=== PATIENT | female | born 1945 | race American Indian/Alaskan Native ===

== ENCOUNTER 2020-03-04 18:23 | Inpatient (IN) | payer MEDICARE ==
[2020-03-05] MEDS ORDERED: ONDANSETRON 4 MG/2 ML INJ IV ONE (02:37)
[2020-03-05] MEDS ORDERED: SODIUM CHLORIDE 0.9% 500 ML 500 ML IV ONE (02:37)
--- NOTE | 2020-03-05 02:40 | Emergency Department Report ---
ED General Adult HPI - General Chief complaint: Weakness Stated complaint: F/DIARRHEA/WEAKNESS PUI?: No Time Seen by Provider: 03/05/20 02:25 Source: patient, RN notes reviewed Mode of arrival: Wheelchair Limitations: No Limitations, Physical Limitation - History of Present Illness Initial comments: The patient was evaluated in the emergency department for symptoms described in the history of present illness. He/she was evaluated in the context of the global COVID-19 pandemic, which necessitated consideration that the patient might be at risk for infection with the virus that causes COVID-19. Institutional protocols and algorithms that pertain to the evaluation of patients at risk for COVID-19 are in a state of rapid change based on information released by regulatory bodies including the CDC and federal and state organizations. These policies and algorithms were followed during the patient's care in the emergency department. Please note that these policies, procedures and recommendations changed on a rapid basis. The patient is a 74-year-old female. She is not known to myself previously. She has a history of obesity, and walks with a walker. She has a primary care doctor, but she cannot recall their name. She is not quite sure what medical conditions she has. The patient presents to the ER today with a complaint of generalized weakness, nausea, coughing up and spitting up, last vomited over 24 hours ago, "diarrhea", which she describes as brown and green, nonbloody, generalized malaise and fatig ue. No headache or neck pain. No chest pain. No abdominal pain. No focal extremity weakness and or numbness. Patient has difficulty describing the qualitative nature of her symptoms, except as noted, and she has difficulty describing exacerbating or relieving factors. The patient did endorse that at one point her stool looked "black." She states that she does not take blood thinning medications or iron supplementation that she is aware of She does appear to have a history of hypertension, stroke, and arthritis. -: Gradual, days(s) Quality: other Consistency: other Improves with: other Worsens with: other Associated Symptoms: other - Related Data Allergies Allergy/AdvReac Type Severity Reaction Status Date / Time No Known Allergies Allergy Verified 03/05/20 05:27 ED Review of Systems ROS: Stated complaint: F/DIARRHEA/WEAKNESS Other details as noted in HPI Constitutional: fever, malaise, weakness Eyes: denies: eye pain, eye discharge ENT: denies: throat pain Respiratory: denies: cough Cardiovascular: denies: chest pain Gastrointestinal: nausea, vomiting, diarrhea. denies: abdominal pain Genitourinary: as per HPI Musculoskeletal: myalgia Neurological: weakness ED Past Medical Hx - Past Medical History Hx Hypertension: Yes Hx CVA: Yes Hx Arthritis: Yes (hip) - Surgical History Additional Surgical History: hysterectomy - Social History Smoking Status: Never Smoker Substance Use Type: None ED Physical Exam - General Limitations: Physical Limitation General appearance: alert, in no apparent distress - Head Head exam: Present: atraumatic, normocephalic - Eye Eye exam: Present: normal appearance, PERRL, EOMI, other (Visual acuity is intact to finger counting and color perception at a close distance). Absent: nystagmus - ENT ENT exam: Present: normal exam, normal orophraynx, mucous membranes moist, normal external ear exam - Neck Neck exam: Present: normal inspection, full ROM. Absent: tenderness, meningismus - Respiratory Respiratory exam: Present: normal lung sounds bilaterally. Absent: respiratory distress, wheezes, rales, rhonchi, stridor, decreased breath sounds - Cardiovascular Cardiovascular Exam: Present: regular rate, normal rhythm, normal heart sounds. Absent: bradycardia, tachycardia, irregular rhythm, systolic murmur, diastolic murmur, rubs, gallop - GI/Abdominal GI/Abdominal exam: Present: soft. Absent: distended, tenderness, guarding, rebound, rigid, pulsatile mass - Rectal Rectal exam: Present: normal inspection, normal rectal tone, heme (-) stool, other (Chaperoned by nurse Zenobia Mccoy). Absent: heme (+) stool, black stool, bloody stool, fecal impaction, hemorrhoids, tenderness - Extremities Exam Extremities exam: Present: normal inspection, full ROM, pedal edema (1+ edema bilateral lower extremities), other (2+ pulses noted in the bilateral upper and lower extremities. There is no palpable cord. negative Homans sign. Muscular compartments are soft. The pelvis is stable.). Absent: calf tenderness - Back Exam Back exam: Present: normal inspection, full ROM. Absent: tenderness, CVA tenderness (R), CVA tenderness (L), paraspinal tenderness, vertebral tenderness - Neurological Exam Neurological exam: Present: alert (Patient typically walks with a walker, and is able to stand and walk with a 1 person assist), other (No facial droop. Tongue midline. Extraocular movements intact bilaterally. Facial sensation intact to light touch in V1, V2, V3 distribution bilaterally. 5 and a 5 strength in 4 extremities. Sensation intact to light touch in 4 extremities.) - Psychiatric Psychiatric exam: Present: normal affect, normal mood - Skin Skin exam: Present: warm, dry, intact, normal color. Absent: rash ED Course Vital Signs 03/04/20 03/05/20 03/05/20 18:34 03:30 03:44 Temperature 100.3 F H 99.6 F Pulse Rate 92 H 87 81 Respiratory 20 16 14 Rate Blood Pressure 151/80 158/78 Blood Pressure 165/82 [Left] O2 Sat by Pulse 94 95 96 Oximetry - Reevaluation(s) Reevaluation #1: 03/05/20 03:38 Differential diagnosis, including but not limited to: Enteritis, pneumonia, urinary tract infection, colitis, diverticulitis, viral syndrome Assessment and plan: 74-year-old female with low-grade temperature, mild hypox ia, with nonspecific constitutional symptoms. Check EKG, basic laboratory studies, urinalysis, x-ray of the chest, CT scan of the abdomen pelvis, as she endorses nausea, diarrhea, and black stool. Rectal exam shows no gross blood. Reassess after initial data points Reevaluation #2: 03/05/20 05:28 CT scan of the abdomen pelvis suggests right middle lobe and right lower lobe pneumonia. PSI score 75 points Risk Class III, 0.9-2.8% mortality. Outpatient or inpatient treatment, depending on clinical judgment. Given advanced age, borderline hypoxia, plan is to admit the patient to the medical service for supportive care. Care will be transferred to the oncoming ER physician, to contact the morning hospitalist team to arrange admission, as the nocturnal hospitalist is currently capped for admissions ED Medical Decision Making - Lab Data Result diagrams: 03/05/20 02:55 03/05/20 02:55 Vital Signs 03/04/20 18:34 Temperature 100.3 F H Pulse Rate 92 H Respiratory 20 Rate Blood Pressure 151/80 O2 Sat by Pulse 94 Oximetry Lab Results 03/05/20 Range/Units 03:10 ABG pH 7.480 H (7.350-7.450) pH Units ABG pCO2 34.5 mm Hg ABG pO2 71.3 L (80.0-90.0) mm Hg ABG HCO3 25.1 (20.0-26.0) mmol/L ABG O2 Saturation 95.7 (95.0-99.0) % ABG O2 Content 17.3 (0.0-44) ABG Base Excess 2.0 (-2.0-3.0) mmol/L ABG Hemoglobin 13.1 (12.0-16.0) gm/dl ABG Carboxyhemoglobin 1.3 (0.0-5.0) % ABG Methemoglobin 0.5 (0.0-1.5) % Oxyhemoglobin 93.9 L (95.0-99.0) % FiO2 21 % Vital Signs 03/04/20 03/05/20 03/05/20 18:34 03:30 03:44 Temperature 100.3 F H 99.6 F Pulse Rate 92 H 87 81 Respiratory 20 16 14 Rate Blood Pressure 151/80 158/78 Blood Pressure 165/82 [Left] O2 Sat by Pulse 94 95 96 Oximetry Lab Results 03/05/20 03/05/20 03/05/20 Range/Units 02:55 02:55 02:55 WBC 6.4 (4.5-11.0) K/mm3 RBC 4.11 (3.65-5.03) M/mm3 Hgb 13.4 (10.1-14.3) gm/dl Hct 39.0 (30.3-42.9) % MCV 95 (79-97) fl MCH 33 H (28-32) pg MCHC 34 (30-34) % RDW 13.2 (13.2-15.2) % Plt Count 182 (140-440) K/mm3 Lymph % (Auto) 30.5 (13.4-35.0) % [place] % (Auto) 9.2 H (0.0-7.3) % Eos % (Auto) 0.1 (0.0-4.3) % Baso % (Auto) 0.3 (0.0-1.8) % Lymph # (Auto) 2.0 (1.2-5.4) K/mm3 [place] # (Auto) 0.6 (0.0-0.8) K/mm3 Eos # (Auto) 0.0 (0.0-0.4) K/mm3 Baso # (Auto) 0.0 (0.0-0.1) K/mm3 Seg Neutrophils % 59.9 (40.0-70.0) % Seg Neutrophils # 3.8 (1.8-7.7) K/mm3 PT 12.9 (12.2-14.9) Sec. INR 0.96 (0.87-1.13) ABG pH (7.350-7.450) pH Units ABG pCO2 mm Hg ABG pO2 (80.0-90.0) mm Hg ABG HCO3 (20.0-26.0) mmol/L ABG O2 Saturation (95.0-99.0) % ABG O2 Content (0.0-44) ABG Base Excess (-2.0-3.0) mmol/L ABG Hemoglobin (12.0-16.0) gm/dl ABG Carboxyhemoglobin (0.0-5.0) % ABG Methemoglobin (0.0-1.5) % Oxyhemoglobin (95.0-99.0) % FiO2 % Sodium 140 (137-145) mmol/L Potassium 3.4 L (3.6-5.0) mmol/L Chloride 99.1 (98-107) mmol/L Carbon Dioxide 27 (22-30) mmol/L Anion Gap 17 mmol/L BUN 16 (7-17) mg/dL Creatinine 0.9 (0.6-1.2) mg/dL Estimated GFR > 60 ml/min BUN/Creatinine Ratio 18 % Glucose 112 H (65-100) mg/dL Calcium 9.2 (8.4-10.2) mg/dL Total Bilirubin 0.90 (0.1-1.2) mg/dL AST 28 (5-40) units/L ALT 11 (7-56) units/L Alkaline Phosphatase 69 (35-129) units/L Total Creatine Kinase (30-135) units/L Troponin T (0.00-0.029) ng/mL Total Protein 7.8 (6.3-8.2) g/dL Albumin 4.3 (3.9-5) g/dL Albumin/Globulin Ratio 1.2 % TSH (0.270-4.200) mlU/mL Urine Color (Yellow) Urine Turbidity (Clear) Urine pH (5.0-7.0) Ur Specific [place] (1.003-1.030) Urine Protein (Negative) mg/dL Urine Glucose (UA) (Negative) mg/dL Urine Ketones (Negative) mg/dL Urine Blood (Negative) Urine Nitrite (Negative) Urine Bilirubin (Negative) Urine Urobilinogen (<2.0) mg/dL Ur Leukocyte Esterase (Negative) Urine WBC (Auto) (0.0-6.0) /HPF Urine RBC (Auto) (0.0-6.0) /HPF U Epithel Cells (Auto) (0-13.0) /HPF Urine Mucus /HPF Salicylates (2.8-20.0) mg/dL Acetaminophen (10.0-30.0) ug/mL 03/05/20 03/05/20 03/05/20 Range/Units 02:55 02:55 02:55 WBC (4.5-11.0) K/mm3 RBC (3.65-5.03) M/mm3 Hgb (10.1-14.3) gm/dl Hct (30.3-42.9) % MCV (79-97) fl MCH (28-32) pg MCHC (30-34) % RDW (13.2-15.2) % Plt Count (140-440) K/mm3 Lymph % (Auto) (13.4-35.0) % [place] % (Auto) (0.0-7.3) % Eos % (Auto) (0.0-4.3) % Baso % (Auto) (0.0-1.8) % Lymph # (Auto) (1.2-5.4) K/mm3 [place] # (Auto) (0.0-0.8) K/mm3 Eos # (Auto) (0.0-0.4) K/mm3 Baso # (Auto) (0.0-0.1) K/mm3 Seg Neutrophils % (40.0-70.0) % Seg Neutrophils # (1.8-7.7) K/mm3 PT (12.2-14.9) Sec. INR (0.87-1.13) ABG pH (7.350-7.450) pH Units ABG pCO2 mm Hg ABG pO2 (80.0-90.0) mm Hg ABG HCO3 (20.0-26.0) mmol/L ABG O2 Saturation (95.0-99.0) % ABG O2 Content (0.0-44) ABG Base Excess (-2.0-3.0) mmol/L ABG Hemoglobin (12.0-16.0) gm/dl ABG Carboxyhemoglobin (0.0-5.0) % ABG Methemoglobin (0.0-1.5) % Oxyhemoglobin (95.0-99.0) % FiO2 % Sodium (137-145) mmol/L Potassium (3.6-5.0) mmol/L Chloride (98-107) mmol/L Carbon Dioxide (22-30) mmol/L Anion Gap mmol/L BUN (7-17) mg/dL Creatinine (0.6-1.2) mg/dL Estimated GFR ml/min BUN/Creatinine Ratio % Glucose (65-100) mg/dL Calcium (8.4-10.2) mg/dL Total Bilirubin (0.1-1.2) mg/dL AST (5-40) units/L ALT (7-56) units/L Alkaline Phosphatase (35-129) units/L Total Creatine Kinase 184 H (30-135) units/L Troponin T < 0.010 (0.00-0.029) ng/mL Total Protein (6.3-8.2) g/dL Albumin (3.9-5) g/dL Albumin/Globulin Ratio % TSH 0.600 (0.270-4.200) mlU/mL Urine Color (Yellow) Urine Turbidity (Clear) Urine pH (5.0-7.0) Ur Specific [place] (1.003-1.030) Urine Protein (Negative) mg/dL Urine Glucose (UA) (Negative) mg/dL Urine Ketones (Negative) mg/dL Urine Blood (Negative) Urine Nitrite (Negative) Urine Bilirubin (Negative) Urine Urobilinogen (<2.0) mg/dL Ur Leukocyte Esterase (Negative) Urine WBC (Auto) (0.0-6.0) /HPF Urine RBC (Auto) (0.0-6.0) /HPF U Epithel Cells (Auto) (0-13.0) /HPF Urine Mucus /HPF Salicylates < 0.3 L (2.8-20.0) mg/dL Acetaminophen (10.0-30.0) ug/mL 03/05/20 03/05/20 03/05/20 Range/Units 02:55 03:10 03:46 WBC (4.5-11.0) K/mm3 RBC (3.65-5.03) M/mm3 Hgb (10.1-14.3) gm/dl Hct (30.3-42.9) % MCV (79-97) fl MCH (28-32) pg MCHC (30-34) % RDW (13.2-15.2) % Plt Count (140-440) K/mm3 Lymph % (Auto) (13.4-35.0) % [place] % (Auto) (0.0-7.3) % Eos % (Auto) (0.0-4.3) % Baso % (Auto) (0.0-1.8) % Lymph # (Auto) (1.2-5.4) K/mm3 [place] # (Auto) (0.0-0.8) K/mm3 Eos # (Auto) (0.0-0.4) K/mm3 Baso # (Auto) (0.0-0.1) K/mm3 Seg Neutrophils % (40.0-70.0) % Seg Neutrophils # (1.8-7.7) K/mm3 PT (12.2-14.9) Sec. INR (0.87-1.13) ABG pH 7.480 H (7.350-7.450) pH Units ABG pCO2 34.5 mm Hg ABG pO2 71.3 L (80.0-90.0) mm Hg ABG HCO3 25.1 (20.0-26.0) mmol/L ABG O2 Saturation 95.7 (95.0-99.0) % ABG O2 Content 17.3 (0.0-44) ABG Base Excess 2.0 (-2.0-3.0) mmol/L ABG Hemoglobin 13.1 (12.0-16.0) gm/dl ABG Carboxyhemoglobin 1.3 (0.0-5.0) % ABG Methemoglobin 0.5 (0.0-1.5) % Oxyhemoglobin 93.9 L (95.0-99.0) % FiO2 21 % Sodium (137-145) mmol/L Potassium (3.6-5.0) mmol/L Chloride (98-107) mmol/L Carbon Dioxide (22-30) mmol/L Anion Gap mmol/L BUN (7-17) mg/dL Creatinine (0.6-1.2) mg/dL Estimated GFR ml/min BUN/Creatinine Ratio % Glucose (65-100) mg/dL Calcium (8.4-10.2) mg/dL Total Bilirubin (0.1-1.2) mg/dL AST (5-40) units/L ALT (7-56) units/L Alkaline Phosphatase (35-129) units/L Total Creatine Kinase (30-135) units/L Troponin T (0.00-0.029) ng/mL Total Protein (6.3-8.2) g/dL Albumin (3.9-5) g/dL Albumin/Globulin Ratio % TSH (0.270-4.200) mlU/mL Urine Color Yellow (Yellow) Urine Turbidity Clear (Clear) Urine pH 6.0 (5.0-7.0) Ur Specific [place] 1.016 (1.003-1.030) Urine Protein 100 mg/dl (Negative) mg/dL Urine Glucose (UA) Neg (Negative) mg/dL Urine Ketones Tr (Negative) mg/dL Urine Blood Mod (Negative) Urine Nitrite Neg (Negative) Urine Bilirubin Neg (Negative) Urine Urobilinogen < 2.0 (<2.0) mg/dL Ur Leukocyte Esterase Tr (Negative) Urine WBC (Auto) 14.0 H (0.0-6.0) /HPF Urine RBC (Auto) 37.0 (0.0-6.0) /HPF U Epithel Cells (Auto) 2.0 (0-13.0) /HPF Urine Mucus Few /HPF Salicylates (2.8-20.0) mg/dL Acetaminophen 5.0 L (10.0-30.0) ug/mL - EKG Data -: EKG Interpreted by Ar EKG shows normal: sinus rhythm Rate: normal - EKG Data 03/05/20 03:39 Sinus rhythm, 80 bpm, normal axis, QTC is prolonged, left ventricular hypertrophy, motion artifact, the EKG is abnormal, the EKG is not a STEMI - Radiology Data Radiology results: pending, report reviewed, image reviewed Print Report Referring Physician: BELKYS PARRA Patient Name: RL ALBRECHT Date of : 1945 Sex: Female Report Date: 2020-03-05 Report Status: Finalized Findings [facility] [address] [id number] Cat Scan Report Signed Patient: RL ALBRECHT MR#: [id number] : 1945 Acct:[id number] Age/Sex: 74 / F ADM Date: 03/04/20 Loc: ED Attending Dr: Ordering Physician: BELKYS PARRA MD Date of Service: 03/05/20 Procedure(s): CT abdomen pelvis w con Accession Number(s): [id number] cc: BELKYS PARRA MD CT ABDOMEN AND PELVIS WITH CONTRAST HISTORY: Nausea, vomiting, diarrhea COMPARISON: None TECHNIQUE: Routine abdominal and pelvic CT exam performed following intravenous contrast administration. Patient received 100 mL IV Omnipaque 300. All CT scans at this location are perf ormed using CT dose reduction for ALARA by means of automated exposure control. FINDINGS: CT ABDOMEN: Lung Bases: There are patchy groundglass opacities in the right middle lobe and right lower lobe. Liver: No significant abnormality. Biliary: Gallbladder is surgically absent. Spleen: No significant abnormality. U nenlarged. Pancreas: No significant abnormality. Adrenals: No significant abnormality. Kidneys: No significant abnormality. Lymphatics: No lymphadenopathy. Vasculature: Abdominal aortic and branch vessel atherosclerotic calcifications without aortic aneurysm. Bowel/Peritoneum: No significant abnormality. No free air. No free fluid. Normal appendix. CT PELVIC: : The uterus is surgically absent. There are no pelvic masses. Lymphatics: No lymphadenopathy. Osseous Structures: No aggressive appearing osseous lesions. Additional Findings: None IMPRESSION: 1. Patchy groundglass opacities in the rig ht middle and right lower lobes that could reflect developing infectious process. 2. No acute findings in the abdomen and pelvis. Signer Name: Rodrigo Oviedo MD Signed: 03/05/2020 5:10 AM Workstation Name: [email or web address] Transcribed By: [place] Dictated By: Rodrigo Oviedo MD Electronically Authenticated By: Rodrigo Oviedo MD Signed Date/Time: 03/05/20 0510 DD/ 0508 TD/TT: Print Report Referring Physician: BELKYS PARRA Patient Name: RL ALBRECHT Date of : 1945 Sex: Female Report Date: 2020-03-05 Report Status: Finalized Findings [facility] [address] [place] [address] XRay Report Signed Patient: RL ALBRECHT MR#: [id number] : 1945 Acct:[id number] Age/Sex: 74 / F ADM Date: 03/04/20 Loc: ED Attending Dr: Ordering Physician: BELKYS PARRA MD Date of Service: 03/05/20 Procedure(s): XR chest 1V ap Accession Number(s): [id number] cc: BELKYS PARRA MD Fluoro Time In Minutes: CHEST 1 VIEW 03/05/2020 3:08 AM INDICATION / CLINICAL INFORMATION: Weakness. COMPARISON: None available. FINDINGS: SUPPORT DEVICES: None. HEART / MEDIASTINUM: No significant abnormality. LUNGS / PLEURA: No significant pulmonary or pleural abnormality. No pneumothorax. ADDITIONAL FINDINGS: No significant additional findings. IMPRESSION: 1. No acute findings. Signer Name: Rodrigo Oviedo MD Signed: 03/05/2020 4:14 AM Workstation Name: [email or web address] Transcribed By: [place] Dictated By: Rodrigo Oviedo MD Electronically Authenticated By: Rodrigo Oviedo MD Signed Date/Time: 03/05/20413 DD/ 3 Critical care attestation.: If time is entered above; I have spent that time in minutes in the direct care of this critically ill patient, excluding procedure time. ED Disposition Clinical Impression: Pyuria, Hypokalemia, Nausea vomiting and diarrhea, Hypoxia, Pulmonary infiltrate Disposition: OP ADMIT IP TO THIS HOSP Is pt being admited?: Yes Does the pt Need Aspirin: No Condition: Good Referrals: PRIMARY CARE, [Primary Care Provider] - 3-5 Days
[2020-03-05 03:28] LABS: ABG HCO3 25.1 mmol/L (20.0-26.0); ABG Methemoglobin 0.5 % (0.0-1.5); ABG Oxygen Saturation 95.7 % (95.0-99.0); ABG PCO2 34.5 mm Hg; ABG PH 7.48 pH Units (7.350-7.450); ABG PO2 71.3 mm Hg (80.0-90.0)
[2020-03-05 03:49] LABS: Basophils % (Auto) 0.3 % (0.0-1.8); Eosinophils % (Auto) 0.1 % (0.0-4.3); Hemoglobin 13.4 gm/dl (10.1-14.3); Lymphocytes % (Auto) 30.5 % (13.4-35.0); Mean Corpuscular HGB Conc 34 % (30-34); Mean Corpuscular Volume 95 fl (79-97); Monocytes # (Auto) 0.6 K/mm3 (0.0-0.8); Monocytes % (Auto) 9.2 % (0.0-7.3); Platelet Count 182 K/mm3 (140-440); Red Blood Count 4.11 M/mm3 (3.65-5.03); Red Cell Distribution Width 13.2 % (13.2-15.2)
[2020-03-05 04:04] LABS: INR 0.96 (0.87-1.13)
[2020-03-05 04:06] LABS: Alanine Aminotransferase 11 units/L (7-56); Albumin 4.3 g/dL (3.9-5); BUN/Creatinine Ratio 18; Blood Urea Nitrogen 16 mg/dL (7-17); Calcium 9.2 mg/dL (8.4-10.2); Hemolysis Index 7
[2020-03-05 04:17] LABS: Bilirubin,Urine NEG (Negative); Blood,Urine MOD (Negative); Color,Urine Yellow (Yellow); Mucus,Urine FEW /HPF; Urobilinogen,Urine < 2.0 mg/dL (<2.0)
--- NOTE | 2020-03-05 04:19 | XRay Report ---
CHEST 1 VIEW 03/05/2020 3:08 AM INDICATION / CLINICAL INFORMATION: Weakness. COMPARISON: None available. FINDINGS: SUPPORT DEVICES: None. HEART / MEDIASTINUM: No significant abnormality. LUNGS / PLEURA: No significant pulmonary or pleural abnormality. No pneumothorax. ADDITIONAL FINDINGS: No significant additional findings. IMPRESSION: 1. No acute findings. Signer Name: Rodrigo Oviedo MD Signed: 03/05/2020 4:14 AM Workstation Name: [email or web address]
[2020-03-05] MEDS ORDERED: ACETAMINOPHEN 325 MG TAB PO ONE (04:53)
[2020-03-05] MEDS ORDERED: POTASSIUM CHLORIDE ER 20 MEQ TAB PO ONE (04:53)
[2020-03-05] MEDS ORDERED: NITROFURANTOIN MONOHYD/M-CRYST 100 MG CAP PO ONE (04:53)
--- NOTE | 2020-03-05 05:15 | Cat Scan Report ---
CT ABDOMEN AND PELVIS WITH CONTRAST HISTORY: Nausea, vomiting, diarrhea COMPARISON: None TECHNIQUE: Routine abdominal and pelvic CT exam performed following intravenous contrast administrat ion. Patient received 100 mL IV Omnipaque 300. All CT scans at this location are performed using CT d ose reduction for ALARA by means of automated exposure control. FINDINGS: CT ABDOMEN: Lung Bases: There are patchy groundglass opacities in the right middle lobe and right lower lobe. Liver: No significant abnormality. Biliary: Gallbladder is surgically absent. Spleen: No significant abnormality. Unenlarged. Pancreas: No significant abnormality. Adrenals: No significant abnormality. Kidneys: No significant abnormality. Lymphatics: No lymphadenopathy. Vasculature: Abdominal aortic and branch vessel atherosclerotic calcifications without aortic aneurys m. Bowel/Peritoneum: No significant abnormality. No free air. No free fluid. Normal appendix. CT PELVIC: : The uterus is surgically absent. There are no pelvic masses. Lymphatics: No lymphadenopathy. Osseous Structures: No aggressive appearing osseous lesions. Additional Findings: None IMPRESSION: 1. Patchy groundglass opacities in the right middle and right lower lobes that could reflect developi ng infectious process. 2. No acute findings in the abdomen and pelvis. Signer Name: Rodrigo Oviedo MD Signed: 03/05/2020 5:10 AM Workstation Name: [email or web address]
[2020-03-05] MEDS ORDERED: AZITHROMYCIN 500 MG in SODIUM CHLORIDE 0.9% 250ML 250 ML IV ONE (05:25)
[2020-03-05] MEDS ORDERED: cefTRIAXone/NS 1 GM/50 ML 1 GM/50 ML BAG IV ONE (05:25)
--- NOTE | 2020-03-05 09:18 | History and Physical Report ---
<SALVADOR KRUSE - Last Filed: 03/05/20 10:38> History of Present Illness Date of examination: 03/05/20 Date of admission: 03/05/20 07:43 History of present illness: This is a 74-year-old female with hypertension, CVA (x2), hyperlipidemia, obesity (he uses a walker at home) and arthritis (right hip) who presents to the emergency department with a 2-day history of nausea, vomiting, diarrhea and fever (03/04 1600 T-max 100.7) per her daughter. The patient states that she had bloody diarrhea and coffee-ground emesis however her daughter says there was no blood in her diarrhea or coffee-ground emesis. She denies any chest pain, hemoptysis, cough, shortness of breath, recent weight loss, fatigue, headache or edema. Per patient's daughter the patient recently visited her urologist and was diagnosed with a urinary tract infection and the patient is scheduled to have an procedure with a urologist next week. Patient denies any sick contacts or recent exposure to COVID-19. Work-up emergency department included a chest x-ray which showed no acute abnormalities, CT pelvis which showed patchy groundglass opacities in the right middle and right lower lobe with no acute findings in the abdomen or pelvis, her urinalysis showed trace leukocyte estrace and pyuria (WBC 14) and she had hypokalemia (K 3.4) which was repleted. Her ABG was 7.4/30 4.5/70 1.3/25.1 shows acute respiratory distress and she was placed on 2 L oxygen via nasal cannula. Advanced care planning was conducted at the bedside. No prior visits to review. Patient will be admitted to the hospitalist service for urinary tract infection and community-acquired pneumonia. Given findings on CT, febrile at 100 and acute respiratory distress she will be a COVID-19 PUI. Covid 19 PCR ordered along with other covid markers. ID consulted. Past History Past Medical History: hypertension, hyperlipidemia, stroke (X2) Past Surgical History: hysterectomy Social history: lives with family, full code. denies: smoking, alcohol abuse, prescription drug abuse, IV drug use Family history: hypertension Medications and Allergies Allergies Allergy/AdvReac Type Severity Reaction Status Date / Time No Known Allergies Allergy Verified 03/05/20 05:27 Active Meds: Active Medications Al Hydrox/Mg Hydrox/Simethicone (Alum-Mag Hydrox-Simeth [id number]/5ml) 30 ml PO Q4H PRN PRN Reason: Indigestion Famotidine (Pepcid) 20 mg PO BID PATEL Ondansetron HCl (Zofran) 4 mg IV Q6HR PRN PRN Reason: Nausea And Vomiting Oxycodone/Acetaminophen (Percocet 5/325) 1 tab PO Q6H PRN PRN Reason: Pain, Moderate (4-6) Sodium Chloride (Sodium Chloride Flush Syringe 10 Ml) 10 ml IV BID PATEL Sodium Chloride (Sodium Chloride Flush Syringe 10 Ml) 10 ml IV PRN PRN PRN Reason: LINE FLUSH Review of Systems Constitutional: fever, no weight loss, no weight gain, no chills, no sweats, no night sweats, no anorexia, no fatigue, no weakness, no malaise, no lethargy, no chronic headaches Ears, nose, mouth and throat: no ear pain, no ear discharge, no tinnitis, no decreased hearing, no nose pain, no nasal congestion, no nasal discharge, no sinus pressure, no sinus pain, no epistaxis, no bleeding gums, no hoarseness Cardiovascular: high blood pressure, no chest pain, no orthopnea, no palpitations, no rapid/irregular heart beat, no edema, no syncope, no lightheadedness, no shortness of breath, no dyspnea on exertion, no leg edema Respiratory: no cough, no cough with sputum, no excessive sputum, no hemoptysis, no shortness of breath, no dyspnea on exertion, no congestion, no pleurisy, no pain on inspiration Gastrointestinal: nausea, vomiting, diarrhea, no abdominal pain, no con stipation, no change in bowel habits, no hematemesis, no coffee ground emesis, no BRBPR, no hematochezia, no loss of appetite, no heartburn, no indigestion Genitourinary Female: no dyspareunia, no dysmenorrhea, no pelvic pain, no flank pain, no menorrhagia, no dysuria, no urinary frequency, no urgency, no stress incontinence, no post void dribbling, no incomplete emptying, no urge incontinence, no vaginal itching Menstruation: post hysterectomy Rectal: no pain, no incontinence, no bleeding, no itching, no hemorrhoids Musculoskeletal: arthritis (Right hip), no neck stiffness, no neck pain, no s hooting arm pain, no arm numbness/tingling, no low back pain, no shooting leg pain, no leg numbness/tingling, no redness of joints, no hot joints, no morning stiffness Integumentary: no rash, no pruritis, no redness, no sores, no wounds, no jaundice, no bullae, no lesions Neurological: no head injury, no transient paralysis, no paralysis, no weakness, no parathesias, no numbness, no tingling, no seizures, no syncope, no tremors, no headaches, no migraines, no tic, no convulsions, no aphasia Psychiatric: no anxiety, no memory loss, no change in sleep habits, no sleep disturbances, no insomnia, no hypersomnia, no change in appetite Endocrine: no cold intolerance, no heat intolerance, no polyphagia, no polydipsia, no polyuria, no nocturia, no excessive sweating, no flushing, no weight change, no high blood sugars, no low blood sugars Hematologic/Lymphatic: no easy bruising, no easy bleeding Allergic/Immunologic: no urticaria, no allergic rhinitis, no wheezing, no persistent infections Exam - Constitutional Vitals: Temp Pulse Resp BP Pulse Ox 99.6 F 75 14 146/70 96 03/05/20 03:44 03/05/20 06:46 03/05/20 06:46 03/05/20 06:46 03/05/20 06:46 General appearance: Present: no acute distress - EENT Eyes: Present: PERRL, EOM intact ENT: hearing decreased - Neck Neck: Present: supple, normal ROM - Respiratory Respiratory effort: normal Respiratory: right: diminished, left: CTA - Cardiovascular Rhythm: regular Heart Sounds: Present: S1 & S2. Absent: gallop, systolic murmur, diastolic murm ur - Extremities Extremities: no ischemia, pulses intact, pulses symmetrical, No edema, normal temperature, normal color, Full ROM Peripheral Pulses: within normal limits - Abdominal General gastrointestinal: Present: soft, non-tender, non-distended, normal bowel sounds - Integumentary Integumentary: Present: clear, warm, dry - Musculoskeletal Musculoskeletal: strength equal bilaterally - Psychiatric Psychiatric: appropriate mood/affect, cooperative - Neurologic Neurologic: CNII-XII intact, no focal deficits, moves all extremities - Allied Health Allied health notes reviewed: nursing HEART Score - HEART Score History: Slightly suspicious EKG: Normal Age: > 65 Risk factors: 1-2 risk factors Troponin: Troponin T < 0.010 ng/mL (0.00-0.029) 03/05/20 02:55 Troponin: < normal limit HEART Score: 3 Results - Labs CBC & Chem 7: 03/05/20 02:55 03/05/20 02:55 Labs: Laboratory Last Values WBC 6.4 K/mm3 (4.5-11.0) 03/05/20 02:55 RBC 4.11 M/mm3 (3.65-5.03) 03/05/20 02:55 Hgb 13.4 gm/dl (10.1-14.3) 03/05/20 02:55 Hct 39.0 % (30.3-42.9) 03/05/20 02:55 MCV 95 fl (79-97) 03/05/20 02:55 MCH 33 pg (28-32) H 03/05/20 02:55 MCHC 34 % (30-34) 03/05/20 02:55 RDW 13.2 % (13.2-15.2) 03/05/20 02:55 Plt Count 182 K/mm3 (140-440) 03/05/20 02:55 Lymph % (Auto) 30.5 % (13.4-35.0) 03/05/20 02:55 Estill % (Auto) 9.2 % (0.0-7.3) H 03/05/20 02:55 Eos % (Auto) 0.1 % (0.0-4.3) 03/05/20 02:55 Baso % (Auto) 0.3 % (0.0-1.8) 03/05/20 02:55 Lymph # (Auto) 2.0 K/mm3 (1.2-5.4) 03/05/20 02:55 Estill # (Auto) 0.6 K/mm3 (0.0-0.8) 03/05/20 02:55 Eos # (Auto) 0.0 K/mm3 (0.0-0.4) 03/05/20 02:55 Baso # (Auto) 0.0 K/mm3 (0.0-0.1) 03/05/20 02:55 Seg Neutrophils % 59.9 % (40.0-70.0) 03/05/20 02:55 Seg Neutrophils # 3.8 K/mm3 (1.8-7.7) 03/05/20 02:55 PT 12.9 Sec. (12.2-14.9) 03/05/20 02:55 INR 0.96 (0.87-1.13) 03/05/20 02:55 ABG pH 7.480 pH Units (7.350-7.450) H 03/05/20 03:10 ABG pCO2 34.5 mm Hg 03/05/20 03:10 ABG pO2 71.3 mm Hg (80.0-90.0) L 03/05/20 03:10 ABG HCO3 25.1 mmol/L (20.0-26.0) 03/05/20 03:10 ABG O2 Saturation 95.7 % (95.0-99.0) 03/05/20 03:10 ABG O2 Content 17.3 (0.0-44) 03/05/20 03:10 ABG Base Excess 2.0 mmol/L (-2.0-3.0) 03/05/20 03:10 ABG Hemoglobin 13.1 gm/dl (12.0-16.0) 03/05/20 03:10 ABG Carboxyhemoglobin 1.3 % (0.0-5.0) 03/05/20 03:10 ABG Methemoglobin 0.5 % (0.0-1.5) 03/05/20 03:10 Oxyhemoglobin 93.9 % (95.0-99.0) L 03/05/20 03:10 FiO2 21 % 03/05/20 03:10 Sodium 140 mmol/L (137-145) 03/05/20 02:55 Potassium 3.4 mmol/L (3.6-5.0) L 03/05/20 02:55 Chloride 99.1 mmol/L (98-107) 03/05/20 02:55 Carbon Dioxide 27 mmol/L (22-30) 03/05/20 02:55 Anion Gap 17 mmol/L 03/05/20 02:55 BUN 16 mg/dL (7-17) 03/05/20 02:55 Creatinine 0.9 mg/dL (0.6-1.2) 03/05/20 02:55 Estimated GFR > 60 ml/min 03/05/20 02:55 BUN/Creatinine Ratio 18 % 03/05/20 02:55 Glucose 112 mg/dL (65-100) H 03/05/20 02:55 Lactic Acid 0.80 mmol/L (0.7-2.0) 03/05/20 05:50 Calcium 9.2 mg/dL (8.4-10.2) 03/05/20 02:55 Magnesium 1.90 mg/dL (1.7-2.3) 03/05/20 05:50 Total Bilirubin 0.90 mg/dL (0.1-1.2) 03/05/20 02:55 AST 28 units/L (5-40) 03/05/20 02:55 ALT 11 units/L (7-56) 03/05/20 02:55 Alkaline Phosphatase 69 units/L (35-129) 03/05/20 02:55 Total Creatine Kinase 184 units/L (30-135) H 03/05/20 02:55 Troponin T < 0.010 ng/mL (0.00-0.029) 03/05/20 02:55 Total Protein 7.8 g/dL (6.3-8.2) 03/05/20 02:55 Albumin 4.3 g/dL (3.9-5) 03/05/20 02:55 Albumin/Globulin Ratio 1.2 % 03/05/20 02:55 TSH 0.600 mlU/mL (0.270-4.200) 03/05/20 02:55 Urine Color Yellow (Yellow) 03/05/20 03:46 Urine Turbidity Clear (Clear) 03/05/20 03:46 Urine pH 6.0 (5.0-7.0) 03/05/20 03:46 Ur Specific [place] 1.016 (1.003-1.030) 03/05/20 03:46 Urine Protein 100 mg/dl mg/dL (Negative) 03/05/20 03:46 Urine Glucose (UA) Neg mg/dL (Negative) 03/05/20 03:46 Urine Ketones Tr mg/dL (Negative) 03/05/20 03:46 Urine Blood Mod (Negative) 03/05/20 03:46 Urine Nitrite Neg (Negative) 03/05/20 03:46 Urine Bilirubin Neg (Negative) 03/05/20 03:46 Urine Urobilinogen < 2.0 mg/dL (<2.0) 03/05/20 03:46 Ur Leukocyte Esterase Tr (Negative) 03/05/20 03:46 Urine WBC (Auto) 14.0 /HPF (0.0-6.0) H 03/05/20 03:46 Urine RBC (Auto) 37.0 /HPF (0.0-6.0) 03/05/20 03:46 U Epithel Cells (Auto) 2.0 /HPF (0-13.0) 03/05/20 03:46 Urine Mucus Few /HPF 03/05/20 03:46 Salicylates < 0.3 mg/dL (2.8-20.0) L 03/05/20 02:55 Acetaminophen 5.0 ug/mL (10.0-30.0) L 03/05/20 02:55 Microbiology: Microbiology 03/05/20 05:43 Peripheral/Venous Blood Culture - Preliminary Culture in Progress 03/05/20 05:50 Peripheral/Venous Blood Culture - Preliminary Culture in Progress - Imaging and Cardiology EKG: report reviewed Chest x-ray: report reviewed CT scan - abdomen: report reviewed - Diagnostic Impressions Diagnostic Impressions: 03/05 CXR:1. No acute findings. 03/05 CT abdomen/pelvis with out contrast: Abdominal aortic and branch vessel atherosclerotic calcifications without aortic aneurysm. The uterus is surgically absent. Patchy groundglass opacities in the right middle and right lower lobes that could reflect developing infectious process. No acute findings in the abdomen and pelvis. Navarro/IV: IV Catheter Type [Left Hand] INT / Saline Lock Assessment and Plan VTE prophylaxis?: Chemical, Mechanical Plan of care discussed with patient/family: Yes - Patient Problems (1) Person under investigation for COVID-19 Current Visit: Yes Status: Acute Plan to address problem: 03/05 COVID 19 PCR pending Isolation/droplet precautions ID consult P.o. azithromycin and IV Rocephin Trend cardiac markers Oxygen oxygenation as needed OOB 3 times daily Pulmonary hygiene Continuous SPO2 monitoring (2) CAP (community acquired pneumonia) Current Visit: Yes Status: Acute Qualifiers: Laterality: right Lung location: middle lobe of lung Qualified Code(s): J18.9 - Pneumonia, unspecified organism Plan to address problem: 03/05 CT abdomen shows groundglass opacities in right and middle lower lobe of lungs 03/05 CXR shows no acute abnormalities P.o. and IV antibiotics Pulmonary hygiene Supplemental oxygenation as needed 03/05 blood cultures and respiratory culture pending Trend CBC In the emergency department she was given IV ceftriaxone and azithromycin (3) Acute respiratory distress Current Visit: Yes Status: Acute Plan to address problem: 03/05 AB.4/ 4.5/70 1.3/25.1 Supplemental oxygenation as needed Continuous SPO2 monitoring (4) UTI (urinary tract infection) Current Visit: Yes Status: Acute Plan to address problem: 03/05 urinalysis shows trace leukocyte esterase and pyuria (WBC 14) Started on IV antibiotic (03/05 through 03/07) 03/05 urine cultures pending Supportive care Trend CBC In the emergency department she was given 1 g ceftriaxone and Macrobid 03/05 (5) Hypokalemia Current Visit: Yes Status: Acute Plan to address problem: Presented with potassium 3.4 Repleted in the emergency department Trend BMP and replete as needed (6) DVT prophylaxis Current Visit: Yes Status: Acute Plan to address problem: SCDs to bilateral lower extremities while in bed Subcu Stevie <MIMI BRAGG R - Last Filed: 03/05/20 15:09> History of Present Illness Date of admission: 03/05/20 07:43 Chief complaint: nausea, vomiting, diarrhea and fever Medications and Allergies Active Meds: Active Medications Al Hydrox/Mg Hydrox/Simethicone (Alum-Mag Hydrox-Simeth [id number]/5ml) 30 ml PO Q4H PRN PRN Reason: Indigestion Azithromycin (Zithromax) 500 mg PO QDAY PATEL Stop: 03/09/20 23:59 Enoxaparin Sodium (Enoxaparin) 40 mg SUB-Q QDAY@2200 PATEL; Protocol Famotidine (Pepcid) 20 mg PO BID PATEL Ceftriaxone Sodium (Rocephin/Ns 2 Gm/100 Ml) 2 gm in 100 mls @ 200 mls/hr IV Q24HR PATEL; Protocol Stop: 03/09/20 23:59 Ondansetron HCl (Zofran) 4 mg IV Q6HR PRN PRN Reason: Nausea And Vomiting Oxycodone/Acetaminophen (Percocet 5/325) 1 tab PO Q6H PRN PRN Reason: Pain, Moderate (4-6) Sodium Chloride (Sodium Chloride Flush Syringe 10 Ml) 10 ml IV BID PATEL Sodium Chloride (Sodium Chloride Flush Syringe 10 Ml) 10 ml IV PRN PRN PRN Reason: LINE FLUSH Exam - Constitutional Vitals: Temp Pulse Resp BP Pulse Ox 98.8 F 61 20 147/69 100 03/05/20 11:45 03/05/20 11:45 03/05/20 11:45 03/05/20 11:45 03/05/20 11:45 HEART Score - HEART Score Troponin: Troponin T < 0.010 ng/mL (0.00-0.029) 03/05/20 02:55 Results - Labs CBC & Chem 7: 03/05/20 02:55 03/05/20 02:55 Labs: Laboratory Last Values WBC 6.4 K/mm3 (4.5-11.0) 03/05/20 02:55 RBC 4.11 M/mm3 (3.65-5.03) 03/05/20 02:55 Hgb 13.4 gm/dl (10.1-14.3) 03/05/20 02:55 Hct 39.0 % (30.3-42.9) 03/05/20 02:55 MCV 95 fl (79-97) 03/05/20 02:55 MCH 33 pg (28-32) H 03/05/20 02:55 MCHC 34 % (30-34) 03/05/20 02:55 RDW 13.2 % (13.2-15.2) 03/05/20 02:55 Plt Count 182 K/mm3 (140-440) 03/05/20 02:55 Lymph % (Auto) 30.5 % (13.4-35.0) 03/05/20 02:55 Estill % (Auto) 9.2 % (0.0-7.3) H 03/05/20 02:55 Eos % (Auto) 0.1 % (0.0-4.3) 03/05/20 02:55 Baso % (Auto) 0.3 % (0.0-1.8) 03/05/20 02:55 Lymph # (Auto) 2.0 K/mm3 (1.2-5.4) 03/05/20 02:55 Estill # (Auto) 0.6 K/mm3 (0.0-0.8) 03/05/20 02:55 Eos # (Auto) 0.0 K/mm3 (0.0-0.4) 03/05/20 02:55 Baso # (Auto) 0.0 K/mm3 (0.0-0.1) 03/05/20 02:55 Seg Neutrophils % 59.9 % (40.0-70.0) 03/05/20 02:55 Seg Neutrophils # 3.8 K/mm3 (1.8-7.7) 03/05/20 02:55 PT 12.9 Sec. (12.2-14.9) 03/05/20 02:55 INR 0.96 (0.87-1.13) 03/05/20 02:55 ABG pH 7.480 pH Units (7.350-7.450) H 03/05/20 03:10 ABG pCO2 34.5 mm Hg 03/05/20 03:10 ABG pO2 71.3 mm Hg (80.0-90.0) L 03/05/20 03:10 ABG HCO3 25.1 mmol/L (20.0-26.0) 03/05/20 03:10 ABG O2 Saturation 95.7 % (95.0-99.0) 03/05/20 03:10 ABG O2 Content 17.3 (0.0-44) 03/05/20 03:10 ABG Base Excess 2.0 mmol/L (-2.0-3.0) 03/05/20 03:10 ABG Hemoglobin 13.1 gm/dl (12.0-16.0) 03/05/20 03:10 ABG Carboxyhemoglobin 1.3 % (0.0-5.0) 03/05/20 03:10 ABG Methemoglobin 0.5 % (0.0-1.5) 03/05/20 03:10 Oxyhemoglobin 93.9 % (95.0-99.0) L 03/05/20 03:10 FiO2 21 % 03/05/20 03:10 Sodium 140 mmol/L (137-145) 03/05/20 02:55 Potassium 3.4 mmol/L (3.6-5.0) L 03/05/20 02:55 Chloride 99.1 mmol/L (98-107) 03/05/20 02:55 Carbon Dioxide 27 mmol/L (22-30) 03/05/20 02:55 Anion Gap 17 mmol/L 03/05/20 02:55 BUN 16 mg/dL (7-17) 03/05/20 02:55 Creatinine 0.9 mg/dL (0.6-1.2) 03/05/20 02:55 Estimated GFR > 60 ml/min 03/05/20 02:55 BUN/Creatinine Ratio 18 % 03/05/20 02:55 Glucose 112 mg/dL (65-100) H 03/05/20 02:55 Lactic Acid 0.80 mmol/L (0.7-2.0) 03/05/20 05:50 Calcium 9.2 mg/dL (8.4-10.2) 03/05/20 02:55 Magnesium 1.90 mg/dL (1.7-2.3) 03/05/20 05:50 Total Bilirubin 0.90 mg/dL (0.1-1.2) 03/05/20 02:55 AST 28 units/L (5-40) 03/05/20 02:55 ALT 11 units/L (7-56) 03/05/20 02:55 Alkaline Phosphatase 69 units/L (35-129) 03/05/20 02:55 Total Creatine Kinase 184 units/L (30-135) H 03/05/20 02:55 Troponin T < 0.010 ng/mL (0.00-0.029) 03/05/20 02:55 Total Protein 7.8 g/dL (6.3-8.2) 03/05/20 02:55 Albumin 4.3 g/dL (3.9-5) 03/05/20 02:55 Albumin/Globulin Ratio 1.2 % 03/05/20 02:55 TSH 0.600 mlU/mL (0.270-4.200) 03/05/20 02:55 Urine Color Yellow (Yellow) 03/05/20 03:46 Urine Turbidity Clear (Clear) 03/05/20 03:46 Urine pH 6.0 (5.0-7.0) 03/05/20 03:46 Ur Specific [place] 1.016 (1.003-1.030) 03/05/20 03:46 Urine Protein 100 mg/dl mg/dL (Negative) 03/05/20 03:46 Urine Glucose (UA) Neg mg/dL (Negative) 03/05/20 03:46 Urine Ketones Tr mg/dL (Negative) 03/05/20 03:46 Urine Blood Mod (Negative) 03/05/20 03:46 Urine Nitrite Neg (Negative) 03/05/20 03:46 Urine Bilirubin Neg (Negative) 03/05/20 03:46 Urine Urobilinogen < 2.0 mg/dL (<2.0) 03/05/20 03:46 Ur Leukocyte Esterase Tr (Negative) 03/05/20 03:46 Urine WBC (Auto) 14.0 /HPF (0.0-6.0) H 03/05/20 03:46 Urine RBC (Auto) 37.0 /HPF (0.0-6.0) 03/05/20 03:46 U Epithel Cells (Auto) 2.0 /HPF (0-13.0) 03/05/20 03:46 Urine Mucus Few /HPF 03/05/20 03:46 Salicylates < 0.3 mg/dL (2.8-20.0) L 03/05/20 02:55 Acetaminophen 5.0 ug/mL (10.0-30.0) L 03/05/20 02:55 Microbiology: Microbiology 03/05/20 05:43 Peripheral/Venous Blood Culture - Preliminary Culture in Progress 03/05/20 05:50 Peripheral/Venous Blood Culture - Preliminary Culture in Progress Navarro/IV: Voiding Method Toilet IV Catheter Type [Left Hand] INT / Saline Lock Assessment and Plan Assessment and plan: I saw and evaluated the patient. I agree with the findings and the plan of care as documented in the Nurse Practitioner's~note,
[2020-03-05] MEDS ORDERED: ONDANSETRON 4 MG/2 ML INJ IV PRN (09:30)
[2020-03-05] MEDS ORDERED: ALUM-MAG HYDROXIDE-SIMETHICONE 200-200-20MG/5ML ORAL LIQD 30 ML PO PRN (10:00)
--- NOTE | 2020-03-05 12:07 | Consultation ---
History of Present Illness - Reason for Consult Consult date: 03/05/20 COVID-19 PUI Requesting physician: SALVADOR KRUSE - History of Present Illness The patient is a 74-year-old female with CVA, hypertension, hyperlipidemia, obesity was brought into the emergency room today with nausea, vomiting, diarrhea along with fever going on for 2 days prior to admission. Found to have 100.3 fever on admission. Labs showed no leukocytosis, UA with mild pyuria. Chest x-ray did not reveal any acute findings, however CT abdomen and pelvis showed subtle patchy groundglass opacities in the right middle and lower lobes. Patient is saturating 96% on room air. Infectious diseases was consulted due to concern for possible COVID-19. Review of Systems: reviewed in the chart, unable to obtain directly due to PPE preservation and minimize risk of transmission Past History Past Medical History: hypertension, hyperlipidemia, stroke (X2) Past Surgical History: hysterectomy Social history: lives with family, full code. denies: smoking, alcohol abuse, prescription drug abuse, IV drug use Family history: hypertension Medications and Allergies Allergies Allergy/AdvReac Type Severity Reaction Status Date / Time No Known Allergies Allergy Verified 03/05/20 05:27 Active Meds: Active Medications Al Hydrox/Mg Hydrox/Simethicone (Alum-Mag Hydrox-Simeth [id number]/5ml) 30 ml PO Q4H PRN PRN Reason: Indigestion Azithromycin (Zithromax) 500 mg PO QDAY PATEL Stop: 03/09/20 23:59 Enoxaparin Sodium (Enoxaparin) 40 mg SUB-Q QDAY@2200 PATEL; Protocol Famotidine (Pepcid) 20 mg PO BID [facility] Ceftriaxone Sodium (Rocephin/Ns 2 Gm/100 Ml) 2 gm in 100 mls @ 200 mls/hr IV Q24HR PATEL; Protocol Stop: 03/09/20 23:59 Ondansetron HCl (Zofran) 4 mg IV Q6HR PRN PRN Reason: Nausea And Vomiting Oxycodone/Acetaminophen (Percocet 5/325) 1 tab PO Q6H PRN PRN Reason: Pain, Moderate (4-6) Sodium Chloride (Sodium Chloride Flush Syringe 10 Ml) 10 ml IV BID [facility] Sodium Chloride (Sodium Chloride Flush Syringe 10 Ml) 10 ml IV PRN PRN PRN Reason: LINE FLUSH Physical Examination - Physical Exam Narrative exam: Physical Exam (reviewed in chart due to PPE conservation and minimize risk of transmission) Constitutional: limited due to PPE conservation strategy Head, Ears, Nose: limited due to PPE conservation strategy Eyes: limited due to PPE conservation strategy Neck: limited due to PPE conservation strategy Oral: limited due to PPE conservation strategy Cardiovascular: limited due to PPE conservation strategy Respiratory: limited due to PPE conservation strategy GI: limited due to PPE conservation strategy Musculoskeletal: limited due to PPE conservation strategy Skin: limited due to PPE conservation strategy Hem/Lymphatic: limited due to PPE conservation strategy Psych: limited due to PPE conservation strategy Neurological: limited due to PPE conservation strategy - Constitutional Vitals: Vital Signs Temp Pulse Resp BP Pulse Ox 99.6 F 76 12 92/47 96 03/05/20 03:44 03/05/20 09:31 03/05/20 09:31 03/05/20 09:31 03/05/20 09:31 Temperature -Last 24 Hours Temperature 99.6 F Temperature 100.3 F Results - Labs CBC & Chem 7: 03/05/20 02:55 03/05/20 02:55 Labs: Abnormal lab results 03/05/20 03/05/20 03/05/20 Range/Units 02:55 02:55 02:55 MCH 33 H (28-32) pg [place] % (Auto) 9.2 H (0.0-7.3) % ABG pH (7.350-7.450) pH Units ABG pO2 (80.0-90.0) mm Hg Oxyhemoglobin (95.0-99.0) % Potassium 3.4 L (3.6-5.0) mmol/L Glucose 112 H (65-100) mg/dL Total Creatine Kinase 184 H (30-135) units/L Urine WBC (Auto) (0.0-6.0) /HPF Salicylates (2.8-20.0) mg/dL Acetaminophen (10.0-30.0) ug/mL 03/05/20 03/05/20 03/05/20 Range/Units 02:55 02:55 03:10 MCH (28-32) pg [place] % (Auto) (0.0-7.3) % ABG pH 7.480 H (7.350-7.450) pH Units ABG pO2 71.3 L (80.0-90.0) mm Hg Oxyhemoglobin 93.9 L (95.0-99.0) % Potassium (3.6-5.0) mmol/L Glucose (65-100) mg/dL Total Creatine Kinase (30-135) units/L Urine WBC (Auto) (0.0-6.0) /HPF Salicylates < 0.3 L (2.8-20.0) mg/dL Acetaminophen 5.0 L (10.0-30.0) ug/mL 03/05/20 Range/Units 03:46 MCH (28-32) pg [place] % (Auto) (0.0-7.3) % ABG pH (7.350-7.450) pH Units ABG pO2 (80.0-90.0) mm Hg Oxyhemoglobin (95.0-99.0) % Potassium (3.6-5.0) mmol/L Glucose (65-100) mg/dL Total Creatine Kinase (30-135) units/L Urine WBC (Auto) 14.0 H (0.0-6.0) /HPF Salicylates (2.8-20.0) mg/dL Acetaminophen (10.0-30.0) ug/mL - Imaging and Cardiology Chest x-ray: report reviewed, image reviewed (no pneumonia seen) Assessment and Plan Cultures: Coronavirus PCR: Pending A/P: 74-year-old female with CVA, hypertension, hyperlipidemia, obesity was brought into the emergency room today with nausea, vomiting, diarrhea along with fever going on for 2 days prior to admission: #Right-sided pneumonia: noted on CT abdomen. #Nausea, vomiting, diarrhea: If persists, check stool for C. difficile. ?from COVID #Mild pyuria: Unclear if patient symptomatic. Follow-up urine culture. Recs: continue empiric Ceftriaxone and azithromycin follow up COVID-19 PCR, if positive, will consider Remdesivir and steroids follow up procalcitonin Lucy Chris MD, FACP [facility] C: [phone] O: [phone] F: [phone]
[2020-03-05] MEDS: FAMOTIDINE 20 MG TAB PO SCH ×2 (15:34→22:09)
[2020-03-05 18:01] LABS: C-Reactive Protein 1.2 mg/dL (0.00-1.30)
[2020-03-05] MEDS: ENOXAPARIN 40 MG/0.4 ML INJ SUB-Q SCH (22:10)
[2020-03-06 06:26] LABS: Basophils % (Auto) 0.6 % (0.0-1.8); Eosinophils % (Auto) 0.4 % (0.0-4.3); Hematocrit 36.4 % (30.3-42.9); Hemoglobin 12.6 gm/dl (10.1-14.3); Lymphocytes # (Auto) 2.5 K/mm3 (1.2-5.4); Lymphocytes % (Auto) 41.7 % (13.4-35.0); Mean Corpuscular HGB Conc 35 % (30-34); Mean Corpuscular Volume 94 fl (79-97); Monocytes # (Auto) 0.5 K/mm3 (0.0-0.8); Monocytes % (Auto) 7.6 % (0.0-7.3); Platelet Count 199 K/mm3 (140-440); Red Blood Count 3.88 M/mm3 (3.65-5.03)
[2020-03-06 06:42] LABS: Blood Urea Nitrogen 13 mg/dL (7-17); Calcium 8.9 mg/dL (8.4-10.2); Hemolysis Index 82
[2020-03-06 06:43] LABS: BUN/Creatinine Ratio 19
[2020-03-06] MEDS ORDERED: ENALAPRILAT 2.5 MG/2 ML INJ IV PRN (07:21)
[2020-03-06] MEDS: amLODIPine 10 MG TAB PO SCH (09:43)
[2020-03-06] MEDS: FAMOTIDINE 20 MG TAB PO SCH ×2 (09:44→21:30)
[2020-03-06] MEDS: OXYBUTYNIN 5 MG TAB PO SCH ×2 (09:44→21:28)
[2020-03-06] MEDS ORDERED: OXYBUTYNIN CHLORIDE 10 MG PO SCH (10:00)
[2020-03-06] MEDS ORDERED: AZITHROMYCIN 250 MG TAB PO SCH (10:00)
[2020-03-06] MEDS ORDERED: cefTRIAXone/NS 2 GM/100 ML 2 GM/100 ML BAG IV SCH (10:00)
--- NOTE | 2020-03-06 12:54 | Progress Note ---
Assessment and Plan Cultures: Coronavirus PCR: Pending Blood and urine culture: no growth thus far A/P: 74-year-old female with CVA, hypertension, hyperlipidemia, obesity was brought into the emergency room today with nausea, vomiting, diarrhea along with fever going on for 2 days prior to admission: #Right-sided pneumonia: noted on CT abdomen. #Nausea, vomiting, diarrhea: ?from COVID. Follow up test. CT abdomen negative for colitis/diverticulitis. Recs: continue empiric Ceftriaxone and azithromycin, procal is low, if COVID is positive, will stop abx follow up COVID-19 PCR, if positive, will consider Remdesivir given moderate to high suspicion for COVID, will start empiric steroids, if COVID PCR is negative, will d/c Lucy Chris MD, FACP [facility] C: [phone] O: [phone] F: [phone] Subjective Date of service: 03/06/20 Interval history: Fever. Remains on room air. COVID pending. Objective - Exam Narrative Exam: Physical Exam (reviewed in chart due to PPE conservation and minimize risk of transmission) Constitutional: limited due to PPE conservation strategy Head, Ears, Nose: limited due to PPE conservation strategy Eyes: limited due to PPE conservation strategy Neck: limited due to PPE conservation strategy Oral: limited due to PPE conservation strategy Cardiovascular: limited due to PPE conservation strategy Respiratory: limited due to PPE conservation strategy GI: limited due to PPE conservation strategy Musculoskeletal: limited due to PPE conservation strategy Skin: limited due to PPE conservation strategy Hem/Lymphatic: limited due to PPE conservation strategy Psych: limited due to PPE conservation strategy Neurological: limited due to PPE conservation strategy - Constitutional Vitals: Vital Signs Temp Pulse Resp BP Pulse Ox 98.4 F 70 20 134/68 93 03/06/20 09:39 03/06/20 09:39 03/06/20 09:39 03/06/20 09:39 03/06/20 09:39 Temperature -Last 24 Hours Temperature 98.4 F Temperature 101.1 F Temperature 99.6 F - Labs CBC & Chem 7: 03/06/20 05:56 03/06/20 05:56 Labs: Abnormal lab results 03/05/20 03/05/20 03/05/20 Range/Units 16:48 16:48 16:48 MCHC (30-34) % RDW (13.2-15.2) % Lymph % (Auto) (13.4-35.0) % [place] % (Auto) (0.0-7.3) % D-Dimer 869.23 H (0-234) ng/mlDDU Glucose (65-100) mg/dL Hemoglobin A1c 6.1 H (4-6) % Ferritin 562.4 H (10.0-200.0) ng/mL Lactate Dehydrogenase (91-180) units/L 03/05/20 03/06/20 03/06/20 Range/Units 16:48 05:56 05:56 MCHC 35 H (30-34) % RDW 13.0 L (13.2-15.2) % Lymph % (Auto) 41.7 H (13.4-35.0) % [place] % (Auto) 7.6 H (0.0-7.3) % D-Dimer (0-234) ng/mlDDU Glucose 101 H (65-100) mg/dL Hemoglobin A1c (4-6) % Ferritin (10.0-200.0) ng/mL Lactate Dehydrogenase 281 H (91-180) units/L
[2020-03-06] MEDS: DEXAMETHASONE 4 MG TAB PO SCH (13:15)
[2020-03-06] MEDS ORDERED: REMDESIVIR 200 MG in SODIUM CHLORIDE 0.9% 250ML 250 ML IV ONE (16:00)
[2020-03-06] MEDS ORDERED: REMDESIVIR 100 MG VIAL IV ONE (16:00)
[2020-03-06] MEDS ORDERED: SODIUM CHLORIDE 0.9% 50 ML IVPB IV SCH (16:00)
[2020-03-06] MEDS: oxyCODONE /ACETAMINOPHEN 5-325MG TAB PO PRN (16:02)
--- NOTE | 2020-03-06 16:28 | Vascular Lab Report ---
VL venous duplex UE BILAT INDICATION / CLINICAL INFORMATION: r/o DVT. TECHNIQUE: Duplex doppler imaging was performed using venous compression and other maneuvers. COMPARISON: None available. FINDINGS: No venous thrombosis is identified within the visualized extremity vasculature. ADDITIONAL FINDINGS: None. IMPRESSION: 1. No sonographic evidence for DVT in the visualized right upper extremity vasculature.. Signer Name: Jacoby Ochoa MD Signed: 03/06/2020 4:23 PM Workstation Name: [id number]
--- NOTE | 2020-03-06 16:28 | Vascular Lab Report ---
VL venous duplex LE BILAT INDICATION / CLINICAL INFORMATION: r/o DVT. TECHNIQUE: Duplex doppler imaging was performed using venous compression and other maneuvers. COMPARISON: None available. FINDINGS: No venous thrombosis is identified within the visualized extremity vasculature. ADDITIONAL FINDINGS: None. IMPRESSION: 1. No sonographic evidence for DVT in the visualized bilateral lower extremity vasculature.. Signer Name: Jacoby Ochoa MD Signed: 03/06/2020 4:24 PM Workstation Name: [id number]
--- NOTE | 2020-03-06 16:59 | Progress Note ---
<URIAHSALVADOR AmelieTaye - Last Filed: 03/06/20 16:59> Assessment and Plan - Patient Problems (1) Pneumonia due to COVID-19 virus Current Visit: Yes Status: Acute Plan to address problem: 03/05 COVID 19 PCR positive Isolation/droplet precautions ID consult 03/05 p.o. azithromycin and IV Rocephin Trend COVID-19 markers Supplemental oxygenation as needed OOB 3 times daily Pulmonary hygiene Continuous SPO2 monitoring Remdesivir started on 03/06 03/06 dexamethasone 6 mg p.o. for 10 days (2) CAP (community acquired pneumonia) Current Visit: Yes Status: Acute Qualifiers: Laterality: right Lung location: middle lobe of lung Qualified Code(s): J18.9 - Pneumonia, unspecified organism Plan to address problem: 03/05 CT abdomen shows groundglass opacities in right and middle lower lobe of lungs 03/05 CXR shows no acute abnormalities P.o. and IV antibiotics Pulmonary hygiene Supplemental oxygenation as needed 03/05 blood cultures and respiratory culture pending Trend CBC In the emergency department she was given IV ceftriaxone and azithromycin 03/05 COVID 19 PCR positive (3) Acute respiratory distress Current Visit: Yes Status: Acute Plan to address problem: 03/05 AB.10/03 4.5/70 1.3/25.1 Supplemental oxygenation as needed Continuous SPO2 monitoring Started on dexamethasone for 10 days (4) UTI (urinary tract infection) Current Visit: Yes Status: Acute Plan to address problem: 03/05 urinalysis shows trace leukocyte esterase and pyuria (WBC 14) Started on IV antibiotic (03/05 through 03/07) 03/05 urine cultures pending Supportive care Trend CBC In the emergency department she was given 1 g ceftriaxone and Macrobid 03/05 (5) Elevated d-dimer Current Visit: Yes Status: Acute Plan to address problem: 03/05 d-dimer 869.23 03/06 bilateral upper extremity and lower extremity venous Doppler: No acute DVT (6) Hypokalemia Current Visit: Yes Status: Resolved Plan to address problem: Presented with potassium 3.4 Repleted in the emergency department Trend BMP and replete as needed 03/06 potassium 3.9 (7) DVT prophylaxis Current Visit: Yes Status: Acute Plan to address problem: SCDs to bilateral lower extremities while in bed Subcu Lovenox History Interval history: This is a 74-year-old female with hypertension, CVA (x2), hyperlipidemia, obesity (he uses a walker at home) and arthritis (right hip) who presents to the emergency department with a 2-day history of nausea, vomiting, diarrhea and fever (03/04 1600 T-max 100.7) per her daughter. The patient states that she had bloody diarrhea and coffee-ground emesis however her daughter says there was no blood in her diarrhea or coffee-ground emesis. Per patient's daughter the patient recently visited her urologist and was diagnosed with a urinary tract infection and the patient is scheduled to have an procedure with a urologist next week. Work-up emergency department included a chest x-ray which showed no acute abnormalities, CT pelvis which showed patchy groundglass opacities in the right middle and right lower lobe with no acute findings in the abdomen or pelvis, her urinalysis showed trace leukocyte estrace and pyuria (WBC 14) and she had hypokalemia (K 3.4) which was repleted. Her ABG was 7.4/30 4.5/70 1.3/25.1 shows acute respiratory distress and she was placed on 2 L oxygen via nasal cannula. Patient was admitted for urinary tract infection, CAP, and COVID- 19 PUI and infectious disease was consulted. Patient was having diarrhea today C. difficile ordered. Per infectious disease patient was initiated on room to severe given that her COVID 19 pneumonia PCR resulted as positive. Patient was on room air at the time of my examination. 03/05 COVID-19 PCR positive Hospitalist Physical - Constitutional Vitals: Temp Pulse Resp BP Pulse Ox 99.3 F 83 20 127/67 93 03/06/20 13:27 03/06/20 13:27 03/06/20 13:27 03/06/20 13:27 03/06/20 13:27 General appearance: Present: no acute distress - EENT Eyes: Present: PERRL, EOM intact ENT: clear oral mucosa, hearing decreased - Neck Neck: Present: supple, normal ROM - Respiratory Respiratory effort: normal Respiratory: bilateral: diminished - Cardiovascular Rhythm: regular Heart Sounds: Present: S1 & S2. Absent: systolic murmur, diastolic murmur - Extremities Extremities: no ischemia, pulses intact, pulses symmetrical, No edema, normal temperature, normal color, Full ROM Peripheral Pulses: within normal limits - Abdominal General gastrointestinal: soft, non-tender, non-distended, normal bowel sounds - Integumentary Integumentary: Present: clear, warm, dry - Psychiatric Psychiatric: cooperative - Neurologic Neurologic: CNII-XII intact, no focal deficits, moves all extremities - Allied Health Allied health notes reviewed: nursing, social work, case management HEART Score - HEART Score EKG: Normal Age: > 65 Risk factors: 1-2 risk factors Troponin: Troponin T < 0.010 ng/mL (0.00-0.029) 03/05/20 02:55 Troponin: < normal limit Results - Labs CBC & Chem 7: 03/06/20 05:56 03/06/20 05:56 Labs: Laboratory Last Values WBC 6.1 K/mm3 (4.5-11.0) 03/06/20 05:56 RBC 3.88 M/mm3 (3.65-5.03) 03/06/20 05:56 Hgb 12.6 gm/dl (10.1-14.3) 03/06/20 05:56 Hct 36.4 % (30.3-42.9) 03/06/20 05:56 MCV 94 fl (79-97) 03/06/20 05:56 MCH 32 pg (28-32) 03/06/20 05:56 MCHC 35 % (30-34) H 03/06/20 05:56 RDW 13.0 % (13.2-15.2) L 03/06/20 05:56 Plt Count 199 K/mm3 (140-440) 03/06/20 05:56 Lymph % (Auto) 41.7 % (13.4-35.0) H 03/06/20 05:56 [place] % (Auto) 7.6 % (0.0-7.3) H 03/06/20 05:56 Eos % (Auto) 0.4 % (0.0-4.3) 03/06/20 05:56 Baso % (Auto) 0.6 % (0.0-1.8) 03/06/20 05:56 Lymph # (Auto) 2.5 K/mm3 (1.2-5.4) 03/06/20 05:56 [place] # (Auto) 0.5 K/mm3 (0.0-0.8) 03/06/20 05:56 Eos # (Auto) 0.0 K/mm3 (0.0-0.4) 03/06/20 05:56 Baso # (Auto) 0.0 K/mm3 (0.0-0.1) 03/06/20 05:56 Seg Neutrophils % 49.7 % (40.0-70.0) 03/06/20 05:56 Seg Neutrophils # 3.0 K/mm3 (1.8-7.7) 03/06/20 05:56 PT 12.9 Sec. (12.2-14.9) 03/05/20 02:55 INR 0.96 (0.87-1.13) 03/05/20 02:55 D-Dimer 869.23 ng/mlDDU (0-234) H 03/05/20 16:48 ABG pH 7.480 pH Units (7.350-7.450) H 03/05/20 03:10 ABG pCO2 34.5 mm Hg 03/05/20 03:10 ABG pO2 71.3 mm Hg (80.0-90.0) L 03/05/20 03:10 ABG HCO3 25.1 mmol/L (20.0-26.0) 03/05/20 03:10 ABG O2 Saturation 95.7 % (95.0-99.0) 03/05/20 03:10 ABG O2 Content 17.3 (0.0-44) 03/05/20 03:10 ABG Base Excess 2.0 mmol/L (-2.0-3.0) 03/05/20 03:10 ABG Hemoglobin 13.1 gm/dl (12.0-16.0) 03/05/20 03:10 ABG Carboxyhemoglobin 1.3 % (0.0-5.0) 03/05/20 03:10 ABG Methemoglobin 0.5 % (0.0-1.5) 03/05/20 03:10 Oxyhemoglobin 93.9 % (95.0-99.0) L 03/05/20 03:10 FiO2 21 % 03/05/20 03:10 Sodium 141 mmol/L (137-145) 03/06/20 05:56 Potassium 3.9 mmol/L (3.6-5.0) 03/06/20 05:56 Chloride 101.7 mmol/L (98-107) 03/06/20 05:56 Carbon Dioxide 28 mmol/L (22-30) 03/06/20 05:56 Anion Gap 15 mmol/L 03/06/20 05:56 BUN 13 mg/dL (7-17) 03/06/20 05:56 Creatinine 0.7 mg/dL (0.6-1.2) 03/06/20 05:56 Estimated GFR > 60 ml/min 03/06/20 05:56 BUN/Creatinine Ratio 19 % 03/06/20 05:56 Glucose 101 mg/dL (65-100) H 03/06/20 05:56 Hemoglobin A1c 6.1 % (4-6) H 03/05/20 16:48 Lactic Acid 0.80 mmol/L (0.7-2.0) 03/05/20 05:50 Calcium 8.9 mg/dL (8.4-10.2) 03/06/20 05:56 Magnesium 1.90 mg/dL (1.7-2.3) 03/05/20 05:50 Ferritin 562.4 ng/mL (10.0-200.0) H 03/05/20 16:48 Total Bilirubin 0.90 mg/dL (0.1-1.2) 03/05/20 02:55 AST 28 units/L (5-40) 03/05/20 02:55 ALT 11 units/L (7-56) 03/05/20 02:55 Alkaline Phosphatase 69 units/L (35-129) 03/05/20 02:55 Lactate Dehydrogenase 281 units/L (91-180) H 03/05/20 16:48 Total Creatine Kinase 184 units/L (30-135) H 03/05/20 02:55 Troponin T < 0.010 ng/mL (0.00-0.029) 03/05/20 02:55 C-Reactive Protein 1.20 mg/dL (0.00-1.30) 03/05/20 16:48 Total Protein 7.8 g/dL (6.3-8.2) 03/05/20 02:55 Albumin 4.3 g/dL (3.9-5) 03/05/20 02:55 Albumin/Globulin Ratio 1.2 % 03/05/20 02:55 Procalcitonin < 0.05 ng/mL (<0.15) 03/05/20 16:48 TSH 0.600 mlU/mL (0.270-4.200) 03/05/20 02:55 Urine Color Yellow (Yellow) 03/05/20 03:46 Urine Turbidity Clear (Clear) 03/05/20 03:46 Urine pH 6.0 (5.0-7.0) 03/05/20 03:46 Ur Specific [place] 1.016 (1.003-1.030) 03/05/20 03:46 Urine Protein 100 mg/dl mg/dL (Negative) 03/05/20 03:46 Urine Glucose (UA) Neg mg/dL (Negative) 03/05/20 03:46 Urine Ketones Tr mg/dL (Negative) 03/05/20 03:46 Urine Blood Mod (Negative) 03/05/20 03:46 Urine Nitrite Neg (Negative) 03/05/20 03:46 Urine Bilirubin Neg (Negative) 03/05/20 03:46 Urine Urobilinogen < 2.0 mg/dL (<2.0) 03/05/20 03:46 Ur Leukocyte Esterase Tr (Negative) 03/05/20 03:46 Urine WBC (Auto) 14.0 /HPF (0.0-6.0) H 03/05/20 03:46 Urine RBC (Auto) 37.0 /HPF (0.0-6.0) 03/05/20 03:46 U Epithel Cells (Auto) 2.0 /HPF (0-13.0) 03/05/20 03:46 Urine Mucus Few /HPF 03/05/20 03:46 Salicylates < 0.3 mg/dL (2.8-20.0) L 03/05/20 02:55 Acetaminophen 5.0 ug/mL (10.0-30.0) L 03/05/20 02:55 Coronavirus (PCR) Positive (Negative) A 03/06/20 10:14 Microbiology: Microbiology 03/05/20 Unknown Urine,Catheterized - Straight Catheter Urine Culture - Preliminary NO GROWTH AFTER 24 HOURS 03/05/20 05:43 Peripheral/Venous Blood Culture - Preliminary NO GROWTH AFTER 24 HOURS 03/05/20 05:50 Peripheral/Venous Blood Culture - Preliminary NO GROWTH AFTER 24 HOURS Navarro/IV: Voiding Method Toilet IV Catheter Type [Left Hand] INT / Saline Lock Active Medications - Current Medications Current Medications: Generic Name Dose Route Start Last Admin Trade Name Freq PRN Reason Stop Dose Admin Al Hydrox/Mg Hydrox/Simethicone 30 ml 03/05/20 10:00 Alum-Mag Hydrox-Simeth 032-391-46mx/5ml PO Q4H PRN Indigestion Amlodipine Besylate 10 mg 03/06/20 10:00 03/06/20 09:43 Amlodipine PO 10 mg DAILY PATEL Administration Atorvastatin Calcium 40 mg 03/06/20 22:00 Lipitor PO QHS PATEL Dexamethasone 6 mg 03/06/20 13:00 03/06/20 13:15 Decadron PO 03/15/20 10:01 6 mg DAILY PATEL Administration Enalaprilat 0.625 mg 03/06/20 07:21 Vasotec IV Q6HR PRN Hypertension Enoxaparin Sodium 40 mg 03/05/20 22:00 03/05/20 22:10 Enoxaparin SUB-Q 40 mg QDAY@2200 PATEL Administration Protocol Famotidine 20 mg 03/05/20 10:00 03/06/20 09:44 Pepcid PO 20 mg BID PATEL Administration REMDESIVIR 100 mg/ Sodium 250 mls @ 500 mls/hr 03/07/20 21:00 Chloride IV 03/10/20 21:29 Q24HR@2100 PATEL Ondansetron HCl 4 mg 03/05/20 09:30 Zofran IV Q6HR PRN Nausea And Vomiting Oxybutynin Chloride 5 mg 03/06/20 10:00 03/06/20 09:44 Ditropan PO 5 mg BID PATEL Administration Oxycodone/Acetaminophen 1 tab 03/05/20 10:00 03/06/20 16:02 Percocet 5/325 PO 1 tab Q6H PRN Administration Pain, Moderate (4-6) Sodium Chloride 10 ml 03/05/20 10:00 03/06/20 09:41 Sodium Chloride Flush Syringe 10 Ml IV 10 ml BID PATEL Administration Sodium Chloride 10 ml 03/05/20 10:00 Sodium Chloride Flush Syringe 10 Ml IV PRN PRN LINE FLUSH Sodium Chloride 50 ml 03/06/20 16:30 Nacl 0.9% IV 03/10/20 21:01 Q24HR@2100 [facility] <MIMI BRAGG R - Last Filed: 03/06/20 23:03> Assessment and Plan Assessment and plan: I saw and evaluated the patient. I agree with the findings and the plan of care as documented in the Nurse Practitioner's~note, with the following corrections and additions. --COVID 19 PNA Will stop iv abx start on remdesivir total 5 days, dexamethasone 6mg po total 10 days cont lovenox for DVT Px --UTI, mild treated with iv abx Hospitalist Physical - Constitutional Vitals: Temp Pulse Resp BP Pulse Ox 99.1 F 80 20 125/65 90 03/06/20 16:31 03/06/20 16:31 03/06/20 16:31 03/06/20 16:31 03/06/20 16:31 HEART Score - HEART Score Troponin: Troponin T < 0.010 ng/mL (0.00-0.029) 03/05/20 02:55 Results - Labs CBC & Chem 7: 03/06/20 05:56 03/06/20 05:56 Labs: Laboratory Last Values WBC 6.1 K/mm3 (4.5-11.0) 03/06/20 05:56 RBC 3.88 M/mm3 (3.65-5.03) 03/06/20 05:56 Hgb 12.6 gm/dl (10.1-14.3) 03/06/20 05:56 Hct 36.4 % (30.3-42.9) 03/06/20 05:56 MCV 94 fl (79-97) 03/06/20 05:56 MCH 32 pg (28-32) 03/06/20 05:56 MCHC 35 % (30-34) H 03/06/20 05:56 RDW 13.0 % (13.2-15.2) L 03/06/20 05:56 Plt Count 199 K/mm3 (140-440) 03/06/20 05:56 Lymph % (Auto) 41.7 % (13.4-35.0) H 03/06/20 05:56 [place] % (Auto) 7.6 % (0.0-7.3) H 03/06/20 05:56 Eos % (Auto) 0.4 % (0.0-4.3) 03/06/20 05:56 Baso % (Auto) 0.6 % (0.0-1.8) 03/06/20 05:56 Lymph # (Auto) 2.5 K/mm3 (1.2-5.4) 03/06/20 05:56 [place] # (Auto) 0.5 K/mm3 (0.0-0.8) 03/06/20 05:56 Eos # (Auto) 0.0 K/mm3 (0.0-0.4) 03/06/20 05:56 Baso # (Auto) 0.0 K/mm3 (0.0-0.1) 03/06/20 05:56 Seg Neutrophils % 49.7 % (40.0-70.0) 03/06/20 05:56 Seg Neutrophils # 3.0 K/mm3 (1.8-7.7) 03/06/20 05:56 PT 12.9 Sec. (12.2-14.9) 03/05/20 02:55 INR 0.96 (0.87-1.13) 03/05/20 02:55 D-Dimer 869.23 ng/mlDDU (0-234) H 03/05/20 16:48 ABG pH 7.480 pH Units (7.350-7.450) H 03/05/20 03:10 ABG pCO2 34.5 mm Hg 03/05/20 03:10 ABG pO2 71.3 mm Hg (80.0-90.0) L 03/05/20 03:10 ABG HCO3 25.1 mmol/L (20.0-26.0) 03/05/20 03:10 ABG O2 Saturation 95.7 % (95.0-99.0) 03/05/20 03:10 ABG O2 Content 17.3 (0.0-44) 03/05/20 03:10 ABG Base Excess 2.0 mmol/L (-2.0-3.0) 03/05/20 03:10 ABG Hemoglobin 13.1 gm/dl (12.0-16.0) 03/05/20 03:10 ABG Carboxyhemoglobin 1.3 % (0.0-5.0) 03/05/20 03:10 ABG Methemoglobin 0.5 % (0.0-1.5) 03/05/20 03:10 Oxyhemoglobin 93.9 % (95.0-99.0) L 03/05/20 03:10 FiO2 21 % 03/05/20 03:10 Sodium 141 mmol/L (137-145) 03/06/20 05:56 Potassium 3.9 mmol/L (3.6-5.0) 03/06/20 05:56 Chloride 101.7 mmol/L (98-107) 03/06/20 05:56 Carbon Dioxide 28 mmol/L (22-30) 03/06/20 05:56 Anion Gap 15 mmol/L 03/06/20 05:56 BUN 13 mg/dL (7-17) 03/06/20 05:56 Creatinine 0.7 mg/dL (0.6-1.2) 03/06/20 05:56 Estimated GFR > 60 ml/min 03/06/20 05:56 BUN/Creatinine Ratio 19 % 03/06/20 05:56 Glucose 101 mg/dL (65-100) H 03/06/20 05:56 Hemoglobin A1c 6.1 % (4-6) H 03/05/20 16:48 Lactic Acid 0.80 mmol/L (0.7-2.0) 03/05/20 05:50 Calcium 8.9 mg/dL (8.4-10.2) 03/06/20 05:56 Magnesium 1.90 mg/dL (1.7-2.3) 03/05/20 05:50 Ferritin 562.4 ng/mL (10.0-200.0) H 03/05/20 16:48 Total Bilirubin 0.90 mg/dL (0.1-1.2) 03/05/20 02:55 AST 28 units/L (5-40) 03/05/20 02:55 ALT 11 units/L (7-56) 03/05/20 02:55 Alkaline Phosphatase 69 units/L (35-129) 03/05/20 02:55 Lactate Dehydrogenase 281 units/L (91-180) H 03/05/20 16:48 Total Creatine Kinase 184 units/L (30-135) H 03/05/20 02:55 Troponin T < 0.010 ng/mL (0.00-0.029) 03/05/20 02:55 C-Reactive Protein 1.20 mg/dL (0.00-1.30) 03/05/20 16:48 Total Protein 7.8 g/dL (6.3-8.2) 03/05/20 02:55 Albumin 4.3 g/dL (3.9-5) 03/05/20 02:55 Albumin/Globulin Ratio 1.2 % 03/05/20 02:55 Procalcitonin < 0.05 ng/mL (<0.15) 03/05/20 16:48 TSH 0.600 mlU/mL (0.270-4.200) 03/05/20 02:55 Urine Color Yellow (Yellow) 03/05/20 03:46 Urine Turbidity Clear (Clear) 03/05/20 03:46 Urine pH 6.0 (5.0-7.0) 03/05/20 03:46 Ur Specific [place] 1.016 (1.003-1.030) 03/05/20 03:46 Urine Protein 100 mg/dl mg/dL (Negative) 03/05/20 03:46 Urine Glucose (UA) Neg mg/dL (Negative) 03/05/20 03:46 Urine Ketones Tr mg/dL (Negative) 03/05/20 03:46 Urine Blood Mod (Negative) 03/05/20 03:46 Urine Nitrite Neg (Negative) 03/05/20 03:46 Urine Bilirubin Neg (Negative) 03/05/20 03:46 Urine Urobilinogen < 2.0 mg/dL (<2.0) 03/05/20 03:46 Ur Leukocyte Esterase Tr (Negative) 03/05/20 03:46 Urine WBC (Auto) 14.0 /HPF (0.0-6.0) H 03/05/20 03:46 Urine RBC (Auto) 37.0 /HPF (0.0-6.0) 03/05/20 03:46 U Epithel Cells (Auto) 2.0 /HPF (0-13.0) 03/05/20 03:46 Urine Mucus Few /HPF 03/05/20 03:46 Salicylates < 0.3 mg/dL (2.8-20.0) L 03/05/20 02:55 Acetaminophen 5.0 ug/mL (10.0-30.0) L 03/05/20 02:55 Coronavirus (PCR) Positive (Negative) A 03/06/20 10:14 Microbiology: Microbiology 03/05/20 Unknown Urine,Catheterized - Straight Catheter Urine Culture - Preliminary NO GROWTH AFTER 24 HOURS 03/05/20 05:43 Peripheral/Venous Blood Culture - Preliminary NO GROWTH AFTER 24 HOURS 03/05/20 05:50 Peripheral/Venous Blood Culture - Preliminary NO GROWTH AFTER 24 HOURS Navarro/IV: Voiding Method Toilet IV Catheter Type [Left Hand] INT / Saline Lock Active Medications - Current Medications Current Medications: Generic Name Dose Route Start Last Admin Trade Name Freq PRN Reason Stop Dose Admin Al Hydrox/Mg Hydrox/Simethicone 30 ml 03/05/20 10:00 Alum-Mag Hydrox-Simeth [id number]/5ml PO Q4H PRN Indigestion Amlodipine Besylate 10 mg 03/06/20 10:00 03/06/20 09:43 Amlodipine PO 10 mg DAILY PATEL Administration Atorvastatin Calcium 40 mg 03/06/20 22:00 03/06/20 21:28 Lipitor PO 40 mg QHS PATEL Administration Dexamethasone 6 mg 03/06/20 13:00 03/06/20 13:15 Decadron PO 03/15/20 10:01 6 mg DAILY PATEL Administration Dextrose 50 ml 03/06/20 17:13 D50w (25gm) Syringe IV Q30MIN PRN Hypoglycemia Protocol Enalaprilat 0.625 mg 03/06/20 07:21 Vasotec IV Q6HR PRN Hypertension Enoxaparin Sodium 40 mg 03/05/20 22:00 03/06/20 21:28 Enoxaparin SUB-Q 40 mg QDAY@2200 PATEL Administration Protocol Famotidine 20 mg 03/05/20 10:00 03/06/20 21:30 Pepcid PO 20 mg BID PATEL Administration REMDESIVIR 100 mg/ Sodium 250 mls @ 500 mls/hr 03/07/20 21:00 Chloride IV 03/10/20 21:29 Q24HR@2100 [facility] Insulin Human Lispro 0 unit 03/06/20 22:00 Humalog SUB-Q ACHS PATEL Protocol Ondansetron HCl 4 mg 03/05/20 09:30 Zofran IV Q6HR PRN Nausea And Vomiting Oxybutynin Chloride 5 mg 03/06/20 10:00 03/06/20 21:28 Ditropan PO 5 mg BID PATEL Administration Oxycodone/Acetaminophen 1 tab 03/05/20 10:00 03/06/20 16:02 Percocet 5/325 PO 1 tab Q6H PRN Administration Pain, Moderate (4-6) Sodium Chloride 10 ml 03/05/20 10:00 03/06/20 22:56 Sodium Chloride Flush Syringe 10 Ml IV Not Given BID PATEL Sodium Chloride 10 ml 03/05/20 10:00 Sodium Chloride Flush Syringe 10 Ml IV PRN PRN LINE FLUSH Sodium Chloride 50 ml 03/06/20 16:30 03/06/20 21:29 Nacl 0.9% IV 03/10/20 21:01 Not Given Q24HR@2100 [facility]
[2020-03-06] MEDS ORDERED: DEXTROSE 50% IN WATER (25GM) 50 ML SYRINGE IV PRN (17:13)
[2020-03-06] MEDS: ENOXAPARIN 40 MG/0.4 ML INJ SUB-Q SCH (21:28)
[2020-03-06] MEDS: SODIUM CHLORIDE 0.9% 50 ML IVPB IV SCH (21:29)
[2020-03-07] MEDS: INSULIN LISPRO 100 UNIT/ML VIAL 3 mL SUB-Q SCH ×5 (00:10→23:17)
[2020-03-07 10:04] LABS: C-Reactive Protein 1.5 mg/dL (0.00-1.30)
[2020-03-07] MEDS: FAMOTIDINE 20 MG TAB PO SCH ×2 (10:29→22:50)
[2020-03-07] MEDS: OXYBUTYNIN 5 MG TAB PO SCH ×2 (10:30→22:51)
[2020-03-07] MEDS: amLODIPine 10 MG TAB PO SCH (10:30)
[2020-03-07] MEDS: DEXAMETHASONE 4 MG TAB PO SCH (10:30)
--- NOTE | 2020-03-07 13:37 | Progress Note ---
Assessment and Plan Cultures: Coronavirus PCR: positive Blood and urine culture: no growth thus far A/P: 74-year-old female with CVA, hypertension, hyperlipidemia, obesity was brought into the emergency room today with nausea, vomiting, diarrhea along with fever going on for 2 days prior to admission: #Right-sided pneumonia secondary to COVID-19: noted on CT abdomen. #Nausea, vomiting, diarrhea: likely from COVID. CT abdomen negative for colitis/diverticulitis. Recs: abx discontinued continue IV Remdesivir D2 of 5 continue decadron D2 of 10 anticoagulation per protocol based on d-dimer monitor markers ferritin, d-dimer, CRP every 2-3 days Lucy Chris MD, FACP [facility] ([facility] C: [phone] O: [phone] F: [phone] Subjective Date of service: 03/07/20 Interval history: No fever. On and off oxygen. COVID-19 positive. Objective - Exam Narrative Exam: Physical Exam (reviewed in chart due to PPE conservation and minimize risk of transmission) Constitutional: limited due to PPE conservation strategy Head, Ears, Nose: limited due to PPE conservation strategy Eyes: limited due to PPE conservation strategy Neck: limited due to PPE conservation strategy Oral: limited due to PPE conservation strategy Cardiovascular: limited due to PPE conservation strategy Respiratory: limited due to PPE conservation strategy GI: limited due to PPE conservation strategy Musculoskeletal: limited due to PPE conservation strategy Skin: limited due to PPE conservation strategy Hem/Lymphatic: limited due to PPE conservation strategy Psych: limited due to PPE conservation strategy Neurological: limited due to PPE conservation strategy - Constitutional Vitals: Vital Signs Temp Pulse Resp BP Pulse Ox 98.7 F 79 19 152/74 95 03/07/20 11:35 03/07/20 11:35 03/07/20 11:35 03/07/20 11:35 03/07/20 11:35 Temperature -Last 24 Hours Temperature 98.7 F Temperature 97.2 F Temperature 99.3 F Temperature 98 F Temperature 99.1 F - Labs CBC & Chem 7: 03/06/20 05:56 03/06/20 05:56 Labs: Abnormal lab results 03/06/20 03/07/20 03/07/20 Range/Units 10:14 09:16 09:16 D-Dimer 554.49 H (0-234) ng/mlDDU POC Glucose (70-105) Ferritin 654.1 H (10.0-200.0) ng/mL Lactate Dehydrogenase (91-180) units/L C-Reactive Protein (0.00-1.30) mg/dL Coronavirus (PCR) Positive A (Negative) 03/07/20 03/07/20 Range/Units 09:16 11:51 D-Dimer (0-234) ng/mlDDU POC Glucose 118 H (70-105) Ferritin (10.0-200.0) ng/mL Lactate Dehydrogenase 320 H (91-180) units/L C-Reactive Protein 1.50 H (0.00-1.30) mg/dL Coronavirus (PCR) (Negative)
--- NOTE | 2020-03-07 14:48 | Progress Note ---
Assessment and Plan --COVID 19 PNA off iv abx started on remdesivir total 5 days, dexamethasone 6mg po total 10 days cont lovenox for DVT Px --UTI, mild treated with iv abx --Hemoglobin A1c 6.1 SSI while inpatient Follow-up with primary outpatient Encourage diet and exercise -- Acute respiratory distress 03/05 AB.4/ 4.5/70 1.3/25.1 Supplemental oxygenation as needed Continuous SPO2 monitoring Started on dexamethasone for 10 days --Elevated d-dimer 03/05 d-dimer 869.23 03/06 bilateral upper extremity and lower extremity venous Doppler: No acute DVT -- Hypokalemia Presented with potassium 3.4 Repleted in the emergency department Trend BMP and replete as needed 03/06 potassium 3.9 -- DVT prophylaxis SCDs to bilateral lower extremities while in bed Subcu Lovenox Brief History This is a 74-year-old female with hypertension, CVA (x2), hyperlipidemia, obesity (he uses a walker at home) and arthritis (right hip) who presents to the emergency department with a 2-day history of nausea, vomiting, diarrhea and fever (03/04 1600 T-max 100.7) per her daughter. The patient states that she had bloody diarrhea and coffee-ground emesis however her daughter says there was no blood in her diarrhea or coffee-ground emesis. Per patient's daughter the patient recently visited her urologist and was diagnosed with a urinary tract infection and the patient is scheduled to have an procedure with a urologist next week. Work-up emergency department included a chest x-ray which showed no acute abnormalities, CT pelvis which showed patchy groundglass opacities in the right middle and right lower lobe with no acute findings in the abdomen or pelvis, her urinalysis showed trace leukocyte estrace and pyuria (WBC 14) and she had hypokalemia (K 3.4) which was repleted. Her ABG was 7.4/30 4.5/70 1 .3/25.1 shows acute respiratory distress and she was placed on 2 L oxygen via nasal cannula. Patient was admitted for urinary tract infection, CAP, and COVID- 19 PUI and infectious disease was consulted. Patient was having diarrhea today C. difficile ordered. Per infectious disease patient was initiated on room to severe given that her COVID 19 pneumonia PCR resulted as positive. Patient was on room air at the time of my examination. 03/06: COVID-19 PCR positive, cont treatment for COVID 19 03/07; day 2 of remdesivir, on 2L n/c. cont to monitor clinically Subjective Date of service: 03/07/20 Interval history: Patient seen and examined. Medical records and medication list reviewed. No acute event overnight noted by the RN. Patient denies any chest pain. Patient is tolerating diet. Patient on minimal supplemental O2 Discussed plan of care at bedside with patient. Objective - Exam Narrative Exam: GENERAL: well-developed and well-nourished -[place] elderly female without any discomfort. HEENT: Normocephalic. Atraumatic. Patient has moist mucous membranes. NECK: Supple. Trachea midline. CHEST/LUNGS: breathing nonlabored. HEART/CARDIOVASCULAR: S1 and S2 positive. ABDOMEN: Abdomen is soft, nontender. SKIN: There is no rash. Warm and dry. NEURO: No focal motor deficit. Follows command. MUSCULOSKELETAL: No joint effusion or tenderness. EXTRIMITY: No edema, no cyanosis or clubbing. PSYCH: Cooperative. - Constitutional Vitals: Vital Signs - 12hr 03/07/20 03/07/20 03/07/20 05:41 07:28 10:35 Temperature 99.3 F 97.2 F L Pulse Rate 73 83 Respiratory 18 20 Rate Blood Pressure 128/58 145/70 O2 Sat by Pulse 97 94 99 Oximetry 03/07/20 11:35 Temperature 98.7 F Pulse Rate 79 Respiratory 19 Rate Blood Pressure 152/74 O2 Sat by Pulse 95 Oximetry - Labs CBC & Chem 7: 03/06/20 05:56 03/06/20 05:56 Labs: Abnormal lab results 03/07/20 03/07/20 03/07/20 Range/Units 09:16 09:16 09:16 D-Dimer 554.49 H (0-234) ng/mlDDU POC Glucose (70-105) Ferritin 654.1 H (10.0-200.0) ng/mL Lactate Dehydrogenase 320 H (91-180) units/L C-Reactive Protein 1.50 H (0.00-1.30) mg/dL 03/07/20 Range/Units 11:51 D-Dimer (0-234) ng/mlDDU POC Glucose 118 H (70-105) Ferritin (10.0-200.0) ng/mL Lactate Dehydrogenase (91-180) units/L C-Reactive Protein (0.00-1.30) mg/dL HEART Score - HEART Score EKG: Normal Age: > 65 Risk factors: 1-2 risk factors Troponin: Troponin T < 0.010 ng/mL (0.00-0.029) 03/05/20 02:55 Troponin: < normal limit
[2020-03-07] MEDS ORDERED: REMDESIVIR 100 MG in SODIUM CHLORIDE 0.9% 250ML 250 ML IV SCH (21:00)
[2020-03-07] MEDS: REMDESIVIR 100 MG in SODIUM CHLORIDE 0.9% 250ML 250 ML IV SCH (22:50)
[2020-03-07] MEDS: SODIUM CHLORIDE 0.9% 50 ML IVPB IV SCH (22:50)
[2020-03-07] MEDS: ENOXAPARIN 40 MG/0.4 ML INJ SUB-Q SCH (22:50)
[2020-03-07] MEDS: oxyCODONE /ACETAMINOPHEN 5-325MG TAB PO PRN (23:00)
[2020-03-08] MEDS: INSULIN LISPRO 100 UNIT/ML VIAL 3 mL SUB-Q SCH ×4 (07:30→22:54)
[2020-03-08] MEDS: FAMOTIDINE 20 MG TAB PO SCH ×2 (09:58→22:26)
[2020-03-08] MEDS: DEXAMETHASONE 4 MG TAB PO SCH (09:59)
[2020-03-08] MEDS: ZINC SULFATE 220 MG CAP PO SCH (09:59)
[2020-03-08] MEDS: OXYBUTYNIN 5 MG TAB PO SCH ×2 (09:59→22:26)
[2020-03-08] MEDS: amLODIPine 10 MG TAB PO SCH (10:00)
--- NOTE | 2020-03-08 15:36 | Progress Note ---
Assessment and Plan Cultures: Coronavirus PCR: positive Blood and urine culture: no growth thus far A/P: 74-year-old female with CVA, hypertension, hyperlipidemia, obesity was brought into the emergency room today with nausea, vomiting, diarrhea along with fever going on for 2 days prior to admission: #Right-sided pneumonia secondary to COVID-19: noted on CT abdomen. #Nausea, vomiting, diarrhea: likely from COVID. CT abdomen negative for colitis/diverticulitis. Recs: continue IV Remdesivir D3 of 5 continue decadron D3 of 10 anticoagulation per protocol based on d-dimer ambulatory sats prior to discharge, recheck markers tomorrow, if stable/i mproving, doesn't need to complete the full 5 days of Remdesivir Lucy Chris MD, FACP [facility] ([facility] C: [phone] O: [phone] F: [phone] Subjective Date of service: 03/08/20 Interval history: No fever. Weaned to room air. Objective - Exam Narrative Exam: Physical Exam (reviewed in chart due to PPE conservation and minimize risk of transmission) Constitutional: limited due to PPE conservation strategy Head, Ears, Nose: limited due to PPE conservation strategy Eyes: limited due to PPE conservation strategy Neck: limited due to PPE conservation strategy Oral: limited due to PPE conservation strategy Cardiovascular: limited due to PPE conservation strategy Respiratory: limited due to PPE conservation strategy GI: limited due to PPE conservation strategy Musculoskeletal: limited due to PPE conservation strategy Skin: limited due to PPE conservation strategy Hem/Lymphatic: limited due to PPE conservation strategy Psych: limited due to PPE conservation strategy Neurological: limited due to PPE conservation strategy - Constitutional Vitals: Vital Signs Temp Pulse Resp BP Pulse Ox 98.4 F 75 22 134/74 96 03/08/20 10:57 03/08/20 10:57 03/08/20 10:57 03/08/20 10:57 03/08/20 10:57 Temperature -Last 24 Hours Temperature 98.4 F Temperature 97.9 F Temperature 97.6 F Temperature 99.2 F - Labs CBC & Chem 7: 03/06/20 05:56 03/06/20 05:56 Labs: Abnormal lab results 03/07/20 03/07/20 03/08/20 Range/Units 16:56 22:31 08:05 POC Glucose 172 H 218 H 122 H (70-105) 03/08/20 Range/Units 11:14 POC Glucose 179 H (70-105)
--- NOTE | 2020-03-08 18:45 | Progress Note ---
Assessment and Plan --COVID 19 PNA off iv abx started on remdesivir total 5 days, dexamethasone 6mg po total 10 days cont lovenox for DVT Px --UTI, mild treated with iv abx --Hemoglobin A1c 6.1 SSI while inpatient Follow-up with primary outpatient Encourage diet and exercise -- Acute respiratory distress 03/05 AB.4/30 4.5/70 1.3/25.1 Supplemental oxygenation as needed Continuous SPO2 monitoring Started on dexamethasone for 10 days --Elevated d-dimer 03/05 d-dimer 869.23 03/06 bilateral upper extremity and lower extremity venous Doppler: No acute DVT -- Hypokalemia Presented with potassium 3.4 Repleted in the emergency department Trend BMP and replete as needed 03/06 potassium 3.9 -- DVT prophylaxis SCDs to bilateral lower extremities while in bed Subcu Lovenox Brief History This is a 74-year-old female with hypertension, CVA (x2), hyperlipidemia, obesity (he uses a walker at home) and arthritis (right hip) who presents to the emergency department with a 2-day history of nausea, vomiting, diarrhea and fever (03/04 1600 T-max 100.7). Work-up emergency department included a chest x- ray which showed no acute abnormalities, CT pelvis which showed patchy groundglass opacities in the right middle and right lower lobe with no acute findings in the abdomen or pelvis, her urinalysis showed trace leukocyte estrace and pyuria (WBC 14) and she had hypokalemia (K 3.4). Her ABG was 7.4/30 4.5/70 1.3/25.1, showed acute respiratory distress and she was placed on 2 L oxygen via nasal cannula. Patient was admitted for urinary tract infection, CAP, and COVID- 19 PUI and infectious disease was consulted. C. def test ordered. 03/06: COVID-19 PCR positive, cont treatment for COVID 19. C. def test ordered but pending 03/07; day 2 of remdesivir, on 2L n/c. cont to monitor clinically 03/08: day 3 of remdesivir, on RA today. monitor inflammatory markers Subjective Date of service: 03/08/20 Interval history: Patient seen and examined. Medical records and medication list reviewed. No acute event overnight noted by the RN. Patient denies any chest pain. Patient is tolerating diet. Patient on RA today Discussed plan of care at bedside with patient. Objective - Exam Narrative Exam: GENERAL: well-developed and well-nourished -Citizen Of [place] elderly female without any discomfort. HEENT: Normocephalic. Atraumatic. Patient has moist mucous membranes. NECK: Supple. Trachea midline. CHEST/LUNGS: breathing nonlabored. HEART/CARDIOVASCULAR: S1 and S2 positive. ABDOMEN: Abdomen is soft, nontender. SKIN: There is no rash. Warm and dry. NEURO: No focal motor deficit. Follows command. MUSCULOSKELETAL: No joint effusion or tenderness. EXTRIMITY: No edema, no cyanosis or clubbing. PSYCH: Cooperative. - Constitutional Vitals: Vital Signs - 12hr 03/08/20 03/08/20 03/08/20 08:42 10:00 10:57 Temperature 98.4 F Pulse Rate 99 H 75 Respiratory 22 Rate Blood Pressure 148/76 134/74 O2 Sat by Pulse 96 96 Oximetry 03/08/20 16:50 Temperature 97.6 F Pulse Rate 73 Respiratory 20 Rate Blood Pressure 143/72 O2 Sat by Pulse 97 Oximetry - Labs CBC & Chem 7: 03/06/20 05:56 03/06/20 05:56 Labs: Abnormal lab results 03/07/20 03/08/20 03/08/20 Range/Units 22:31 08:05 11:14 POC Glucose 218 H 122 H 179 H (70-105) 03/08/20 Range/Units 17:07 POC Glucose 178 H (70-105) HEART Score - HEART Score EKG: Normal Age: > 65 Risk factors: 1-2 risk factors Troponin: Troponin T < 0.010 ng/mL (0.00-0.029) 03/05/20 02:55 Troponin: < normal limit
[2020-03-08] MEDS: REMDESIVIR 100 MG in SODIUM CHLORIDE 0.9% 250ML 250 ML IV SCH (22:26)
[2020-03-08] MEDS: ENOXAPARIN 40 MG/0.4 ML INJ SUB-Q SCH (22:26)
[2020-03-08] MEDS: SODIUM CHLORIDE 0.9% 50 ML IVPB IV SCH (22:26)
[2020-03-09] MEDS: INSULIN LISPRO 100 UNIT/ML VIAL 3 mL SUB-Q SCH ×4 (07:37→22:36)
[2020-03-09] MEDS: DEXAMETHASONE 4 MG TAB PO SCH (09:29)
[2020-03-09] MEDS: OXYBUTYNIN 5 MG TAB PO SCH ×2 (09:30→21:47)
[2020-03-09] MEDS: ZINC SULFATE 220 MG CAP PO SCH (09:30)
[2020-03-09] MEDS: amLODIPine 10 MG TAB PO SCH (09:30)
[2020-03-09] MEDS: FAMOTIDINE 20 MG TAB PO SCH ×2 (09:31→21:47)
[2020-03-09 12:04] LABS: C-Reactive Protein 0.7 mg/dL (0.00-1.30)
--- NOTE | 2020-03-09 13:48 | Progress Note ---
Assessment and Plan --COVID 19 PNA off iv abx started on remdesivir total 5 days, dexamethasone 6mg po total 10 days cont lovenox for DVT Px --UTI, mild treated with iv abx --Hemoglobin A1c 6.1 SSI while inpatient Follow-up with primary outpatient Encourage diet and exercise -- Acute respiratory distress 03/05 AB.4/30 4.5/70 1.3/25.1 Supplemental oxygenation as needed Continuous SPO2 monitoring Started on dexamethasone for 10 days --Elevated d-dimer 03/05 d-dimer 869.23 03/06 bilateral upper extremity and lower extremity venous Doppler: No acute DVT -- Hypokalemia Presented with potassium 3.4 Repleted in the emergency department Trend BMP and replete as needed 03/06 potassium 3.9 --Morbid obesity, dietary recommendation --History of CVA x2, continue aspirin and statin -- DVT prophylaxis SCDs to bilateral lower extremities while in bed Subcu Lovenox Brief History This is a 74-year-old female with hypertension, CVA (x2), hyperlipidemia, obesity (he uses a walker at home) and arthritis (right hip) who presents to the emergency department with a 2-day history of nausea, vomiting, diarrhea and fever (03/04 1600 T-max 100.7). Work-up emergency department included a chest x- ray which showed no acute abnormalities, CT pelvis which showed patchy groundglass opacities in the right middle and right lower lobe with no acute findings in the abdomen or pelvis, her urinalysis showed trace leukocyte estrace and pyuria (WBC 14) and she had hypokalemia (K 3.4). Her ABG was 7.4/30 4.5/70 1.3/25.1, showed acute respiratory distress and she was placed on 2 L oxygen via nasal cannula. Patient was admitted for urinary tract infection, CAP, and COVID- 19 PUI and infectious disease was consulted. C. def test ordered. 03/06: COVID-19 PCR positive, cont treatment for COVID 19. C. def test ordered but pending 03/07; day 2 of remdesivir, on 2L n/c. cont to monitor clinically 03/08: day 3 of remdesivir, on RA today. monitor inflammatory markers 03/09: Inflammatory markers improving, day 4 of remdesivir. Considering patient age 74 y/o with h/o CVA, hyperlipidemia morbid obesity BMI 35.1 with a1c 6.1 - metabolic syndrome puts the patient in high risk category with COVID-19 and pote ntial chance for rapid deterioration. That is why we will complete total 5 days of remdesivir before discharge. Continue dexamethasone. Subjective Date of service: 03/09/20 Interval history: Patient seen and examined. Medical records and medication list reviewed. No acute event overnight noted by the RN. Patient denies any chest pain. Patient is tolerating diet. Patient remains on RA Discussed plan of care at bedside with patient. Objective - Exam Narrative Exam: GENERAL: well-developed and well-nourished -[place] elderly female without any discomfort. HEENT: Normocephalic. Atraumatic. Patient has moist mucous membranes. NECK: Supple. Trachea midline. CHEST/LUNGS: breathing nonlabored. HEART/CARDIOVASCULAR: S1 and S2 positive. ABDOMEN: Abdomen is soft, nontender. SKIN: There is no rash. Warm and dry. NEURO: No focal motor deficit. Follows command. MUSCULOSKELETAL: No joint effusion or tenderness. EXTRIMITY: No edema, no cyanosis or clubbing. PSYCH: Cooperative. - Constitutional Vitals: Vital Signs - 12hr 03/09/20 03/09/20 03/09/20 05:48 08:23 09:30 Temperature 98.3 F Pulse Rate 66 66 Respiratory 20 Rate Blood Pressure 144/73 140/72 O2 Sat by Pulse 93 93 Oximetry - Labs CBC & Chem 7: 03/06/20 05:56 03/06/20 05:56 Labs: Abnormal lab results 03/08/20 03/08/20 03/09/20 Range/Units 17:07 23:02 07:51 D-Dimer (0-234) ng/mlDDU POC Glucose 178 H 223 H 128 H (70-105) Ferritin (10.0-200.0) ng/mL Lactate Dehydrogenase (91-180) units/L 03/09/20 03/09/20 03/09/20 Range/Units 11:21 11:21 11:21 D-Dimer 334.60 H (0-234) ng/mlDDU POC Glucose (70-105) Ferritin 505.2 H (10.0-200.0) ng/mL Lactate Dehydrogenase 243 H (91-180) units/L 03/09/20 Range/Units 11:42 D-Dimer (0-234) ng/mlDDU POC Glucose 147 H (70-105) Ferritin (10.0-200.0) ng/mL Lactate Dehydrogenase (91-180) units/L HEART Score - HEART Score EKG: Normal Age: > 65 Risk factors: 1-2 risk factors Troponin: Troponin T < 0.010 ng/mL (0.00-0.029) 03/05/20 02:55 Troponin: < normal limit
[2020-03-09] MEDS: ASPIRIN EC 81 MG TAB PO SCH (17:11)
[2020-03-09] MEDS: REMDESIVIR 100 MG in SODIUM CHLORIDE 0.9% 250ML 250 ML IV SCH (21:46)
[2020-03-09] MEDS: ENOXAPARIN 40 MG/0.4 ML INJ SUB-Q SCH (21:47)
[2020-03-09] MEDS: METOPROLOL TARTRATE 25 MG TAB PO SCH (21:47)
[2020-03-09] MEDS: SODIUM CHLORIDE 0.9% 50 ML IVPB IV SCH (21:48)
[2020-03-10] MEDS: INSULIN LISPRO 100 UNIT/ML VIAL 3 mL SUB-Q SCH ×2 (08:18→12:51)
[2020-03-10] MEDS: DEXAMETHASONE 4 MG TAB PO SCH (09:08)
[2020-03-10] MEDS: ASPIRIN EC 81 MG TAB PO SCH (09:09)
[2020-03-10] MEDS: FAMOTIDINE 20 MG TAB PO SCH (09:09)
[2020-03-10] MEDS: METOPROLOL TARTRATE 25 MG TAB PO SCH (09:09)
[2020-03-10] MEDS: amLODIPine 10 MG TAB PO SCH (09:09)
[2020-03-10] MEDS: OXYBUTYNIN 5 MG TAB PO SCH (09:09)
[2020-03-10] MEDS: ZINC SULFATE 220 MG CAP PO SCH (09:10)
--- NOTE | 2020-03-10 11:48 | Progress Note ---
Assessment and Plan Cultures: Coronavirus PCR: positive Blood and urine culture: no growth thus far A/P: 74-year-old female with CVA, hypertension, hyperlipidemia, obesity was brought into the emergency room today with nausea, vomiting, diarrhea along with fever going on for 2 days prior to admission: #Right-sided pneumonia secondary to COVID-19: noted on CT abdomen. #Nausea, vomiting, diarrhea: likely from COVID. CT abdomen negative for colitis/diverticulitis. Recs: Last day of Remdesivir today continue decadron D5 of 10 anticoagulation per protocol based on d-dimer ambulatory sats prior to discharge, OK for discharge from ID standpoint Lucy Chris MD, FACP [facility] ([facility] C: [phone] O: [phone] F: [phone] Subjective Date of service: 03/10/20 Interval history: No fever. Remains on room air. Objective - Exam Narrative Exam: Physical Exam (reviewed in chart due to PPE conservation and minimize risk of transmission) Constitutional: limited due to PPE conservation strategy Head, Ears, Nose: limited due to PPE conservation strategy Eyes: limited due to PPE conservation strategy Neck: limited due to PPE conservation strategy Oral: limited due to PPE conservation strategy Cardiovascular: limited due to PPE conservation strategy Respiratory: limited due to PPE conservation strategy GI: limited due to PPE conservation strategy Musculoskeletal: limited due to PPE conservation strategy Skin: limited due to PPE conservation strategy Hem/Lymphatic: limited due to PPE conservation strategy Psych: limited due to PPE conservation strategy Neurological: limited due to PPE conservation strategy - Constitutional Vitals: Vital Signs Temp Pulse Resp BP Pulse Ox 98.7 F 66 18 172/84 95 03/10/20 05:40 03/10/20 05:40 03/10/20 05:40 03/10/20 05:40 03/10/20 05:40 Temperature -Last 24 Hours Temperature 98.7 F Temperature 98.7 F Temperature 98.7 F - Labs CBC & Chem 7: 03/06/20 05:56 03/06/20 05:56 Labs: Abnormal lab results 03/09/20 03/09/20 03/09/20 Range/Units 11:21 11:21 11:21 D-Dimer 334.60 H (0-234) ng/mlDDU POC Glucose (70-105) Ferritin 505.2 H (10.0-200.0) ng/mL Lactate Dehydrogenase 243 H (91-180) units/L 03/09/20 03/09/20 03/09/20 Range/Units 11:42 17:01 22:47 D-Dimer (0-234) ng/mlDDU POC Glucose 147 H 177 H 309 H (70-105) Ferritin (10.0-200.0) ng/mL Lactate Dehydrogenase (91-180) units/L 03/10/20 Range/Units 07:36 D-Dimer (0-234) ng/mlDDU POC Glucose 129 H (70-105) Ferritin (10.0-200.0) ng/mL Lactate Dehydrogenase (91-180) units/L
--- NOTE | 2020-03-10 13:01 | Discharge Summary ---
<SALVADOR KRUSE - Last Filed: 03/10/20 13:19> Providers - Providers Date of Admission: 03/06/20 14:44 Date of discharge: 03/10/20 Attending physician: MIMI BRAGG 03/05/20 10:41 Consult to Physician [CONS] Routine Comment: Consulting Provider: BONNIE CANO Physician Instructions: Reason For Exam: COVID PUI 03/07/20 09:31 Physical Therapy Evaluation and Treat [CONS] Routine Comment: Reason For Exam: general weakness Primary care physician: RADIO ASSEMBLER Hospitalization Condition: Stable Pertinent studies: 03/05 CT chest shows no acute abnormalities 03/05 CT abdomen/pelvis shows patchy bronchus opacities in the right middle and right lower lobes that could reflect developing infectious process, no acute findings in the abdomen and pelvis. 03/06 bilateral upper extremity and lower extremity venous Doppler ultrasound showed no acute DVT Hospital course: This is a 74-year-old female with hypertension, CVA (x2), hyperlipidemia, obesity (he uses a walker at home) and arthritis (right hip) who presents to the emergency department with a 2-day history of nausea, vomiting, diarrhea and fever (03/04 1600 T-max 100.7). Work-up emergency department included a chest x- ray which showed no acute abnormalities, CT pelvis which showed patchy groundglass opacities in the right middle and right lower lobe with no acute findings in the abdomen or pelvis, her urinalysis showed trace leukocyte estrace and pyuria (WBC 14) and she had hypokalemia (K 3.4). Her ABG was 7.4/30 4.5/70 1.3/25.1 showing acute respiratory distress and she was placed on 2 L oxygen via nasal cannula. Patient was admitted for urinary tract infection, CAP, and COVID-19 PUI. On 03/06 her COVID-19 PCR resulted as positive and her diarrhea is most likely cause of her COVID-19 infection. She was started on room to severe on 03/06 and completed the course on 03/10. She was weaned down to room air on 03/08 and will be discharged with room air. She will continue her dexamethasone on discharge for 5 additional days to complete a 10-day course. She will need to follow-up with her primary care physician within 2 weeks of discharge. --COVID-19 pneumonia Completed 5-day course of remdesivir Will be discharged to complete her 10-day course of dexamethasone 6mg PO daily --UTI, mild s/p antibiotic treatment --Hyperglycemia Hemoglobin A1c 6.1 Follow-up with primary outpatient as patient denies history of DM Encourage diet and exercise -- Acute respiratory distress 03/05 AB.4/30 4.5/70 1.3/25.1 Will be discharged to complete her 10-day course of dexamethasone 6 mg p.o. daily --Elevated d-dimer 03/05 d-dimer 869.23, discharge d-dimer on 03/09 334.6 03/06 bilateral upper extremity and lower extremity venous Doppler: No acute DVT -- Hypokalemia Presented with potassium 3.4 Repleted in the emergency department 03/06 potassium 3.9 --Morbid obesity Consider possible weight loss surgery Increase physical activity and decrease caloric intake --History of CVA x2 continue aspirin and statin Disposition: - TO HOME OR SELFCARE Time spent for discharge: 35 Core Measure Documentation - Palliative Care Palliative Care/ Comfort Measures: Not Applicable - Core Measures Any of the following diagnoses?: history only Exam - Constitutional Vitals: Temp Pulse Resp BP Pulse Ox 98.7 F 66 18 172/84 95 03/10/20 05:40 03/10/20 05:40 03/10/20 05:40 03/10/20 05:40 03/10/20 05:40 General appearance: Present: no acute distress - EENT Eyes: Present: PERRL, EOM intact ENT: clear oral mucosa, hearing decreased - Neck Neck: Present: supple - Respiratory Respiratory effort: normal Respiratory: bilateral: CTA - Cardiovascular Rhythm: regular Heart Sounds: Present: S1 & S2. Absent: systolic murmur, diastolic murmur - Extremities Extremities: no ischemia, pulses intact, pulses symmetrical, No edema, normal temperature, normal color, Full ROM Peripheral Pulses: within normal limits - Abdominal General gastrointestinal: Present: soft, non-tender, non-distended, normal bowel sounds - Integumentary Integumentary: Present: clear, warm, dry - Musculoskeletal Musculoskeletal: strength equal bilaterally - Psychiatric Psychiatric: appropriate mood/affect, cooperative - Neurologic Neurologic: CNII-XII intact, no focal deficits, moves all extremities - Allied Health Allied health notes reviewed: nursing, social work, case management Plan Activity: advance as tolerated Diet: diabetic, low carbohydrate Special Instructions: record blood sugar diary Additional Instructions: Contact your primary care physician or report to nearest emergency department if experience worsening symptoms. Follow-up with your primary care physician within 2 weeks of discharge. You will be discharged to complete your 10-day course of dexamethasone 6 mg p.o. You will be given a pamphlet and follow the recommendations for COVID-19. Follow up with: PRIMARY CARE, [Primary Care Provider] - 3-5 Days Prescriptions: AtorvaSTATin [Lipitor] 40 mg PO QHS #30 tab amLODIPine 10 mg PO DAILY #30 tab dexAMETHasone [Decadron] 6 mg PO DAILY #5 tablet Oxybutynin [Ditropan] 5 mg PO BID #60 tablet Aspirin EC [Halfprin EC] 81 mg PO QDAY #30 tablet Metoprolol [Lopressor TAB] 12.5 mg PO BID #60 tablet Zinc Sulfate 220 mg PO QDAY #30 capsule <MIMI BRAGG - Last Filed: 03/10/20 15:31> Providers - Providers Date of Admission: 03/06/20 14:44 Attending physician: MIMI BRAGG 03/05/20 10:41 Consult to Physician [CONS] Routine Comment: Consulting Provider: BONNIE CANO Physician Instructions: Reason For Exam: COVID PUI 03/07/20 09:31 Physical Therapy Evaluation and Treat [CONS] Routine Comment: Reason For Exam: general weakness Primary care physician: RADIO ASSEMBLER Hospitalization Hospital course: I saw and evaluated the patient. I agree with the findings and the plan of care as documented in the Nurse Practitioner's~note, Exam - Constitutional Vitals: Temp Pulse Resp BP Pulse Ox 97.8 F 58 L 22 168/73 97 03/10/20 11:23 03/10/20 11:23 03/10/20 11:23 03/10/20 11:23 03/10/20 11:23
[2020-03-10] MEDS ORDERED: SODIUM CHLORIDE 0.9% 50 ML IVPB IV ONE (14:00)
[2020-03-10] MEDS ORDERED: REMDESIVIR 100 MG in SODIUM CHLORIDE 0.9% 250ML 250 ML IV ONE (14:00)
[2020-03-10 14:46] VITALS: BP 168/73
== END 2020-03-10 17:05 | disposition home or self-care (01) | DRG 177 ==
LOC: ED 18:23 → 4A 03-05 07:43 → 3A 03-05 10:47 → OBSVTOIN 03-06 14:44
PROVIDERS: ADMIT Internal Medicine; ATTEND Internal Medicine
PROC: 4A033R1 Measurement of Arterial Saturation, Peripheral, Percutaneous Approach (ICD-10-PCS; 2020-03-05)
PROC: XW033E5 Introduction of Remdesivir Anti-infective into Peripheral Vein, Percutaneous Approach, New Technology Group 5 (ICD-10-PCS; 2020-03-06)
PROC: XW033E5 Introduction of Remdesivir Anti-infective into Peripheral Vein, Percutaneous Approach, New Technology Group 5 (ICD-10-PCS; principal; 2020-03-07)
PROC: XW033E5 Introduction of Remdesivir Anti-infective into Peripheral Vein, Percutaneous Approach, New Technology Group 5 (ICD-10-PCS; 2020-03-10)
DX: U07.1 COVID-19 (principal); J12.89 Other viral pneumonia; J96.01 Acute respiratory failure with hypoxia; N39.0 Urinary tract infection, site not specified; E87.6 Hypokalemia; I10 Essential (primary) hypertension; M19.90 Unspecified osteoarthritis, unspecified site; R73.9 Hyperglycemia, unspecified; E66.01 Morbid (severe) obesity due to excess calories; Z86.73 Personal history of transient ischemic attack (TIA), and cerebral infarction without residual deficits; Z68.35 Body mass index [BMI] 35.0-35.9, adult; Z90.710 Acquired absence of both cervix and uterus; Z82.49 Family history of ischemic heart disease and other diseases of the circulatory system
CPT/HCPCS: 36415; 71045; 74177; 80048; 80053; 80320; 81001; 82140; 82550; 82728; 82803; 82962; 83036; 83615; 83735; 84145; 84443; 84484; 85025; 85379; 85610; 86140; 87040; 87086; 93005; 93970; 96365; 96366; 96375; G0378; A9270-GY; G0480; J0456; J0696; J1650; J2405; J7040; J7050; J8540; Q9967; U0003-CS

== ENCOUNTER 2021-12-21 16:39 | Emergency (ER) | payer MEDICARE ==
[2021-12-21 17:25] VITALS: BP 172/76
--- NOTE | 2021-12-22 18:55 | Electrocardiograph Report ---
[facility] Test Date: 2021-12-21 Test Time: 17:14:44 Pat Name: RL ALBRECHT Department: Room: Gender: F Residential Framing Carpenter: RACHELL : 1945 Requested By: NIESHA MEDINA Order Number: [id number] Reading MD: Sis Nation Measurements Intervals [place] Rate: 83 P: 49 LA: 172 QRS: -17 QRSD: 87 T: 46 QT: 381 QTc: 448 Interpretive Statements Sinus rhythm Low voltage, precordial leads Anteroseptal infarct, old Old inferior infarct No previous ECG available for comparison Electronically Signed On 12-22-2021 18:54:57 EDT by Sis Nation
== END 2021-12-21 20:00 | disposition left against medical advice (07) ==
LOC: ED 16:39
DX: R07.9 Chest pain, unspecified (principal); M79.603 Pain in arm, unspecified; Z53.21 Procedure and treatment not carried out due to patient leaving prior to being seen by health care provider
CPT/HCPCS: 93005